=== PATIENT | male | born 1960 | race Caucasian/White ===

== ENCOUNTER 2020-04-21 08:09 | Outpatient (CLI) | payer MEDICARE, SELFPAY ==
--- NOTE | 2020-04-21 08:30 | FL_ITS ---
WS: [id number] ESOPHAGRAM TECHNIQUE: Double contrast examination was performed with thin and thick barium. Upright and DIXON imag es were obtained. CLINICAL INFORMATION: R13.10 - Dysphagia, unspecified FLUOROSCOPY TIME 4.5 MINUTES COMPARISON: None. FINDINGS: Sternotomy. Cardiac pacer. Swallowing: No evidence of aspiration or penetration. Prominent pooling of contrast in the vallecula which partially clears with additional swallows. Prominent bilateral pharyngeal pouches with pooling of contrast. In addition posterior projecting pharyngeal diverticulum at the level of the hyoid bone measuring approximately 1.5 x 1.5 cm with contrast retention. This is at the C3-4 level higher than t ypical for a Zenker's diverticulum Esophagus: Mild to moderate esophageal dysmotility with delayed emptying on the upright view and ter tiary contractions in the distal esophagus. Moderate esophageal hiatal hernia with reflux to the mide sophagus. Gastroesophageal reflux: Present Fluoroscopy time: 4.5 minutes. FL/FL barium swallow [id number] IMPRESSION: 1. Mild to moderate esophageal dysmotility with delayed emptying on the uprigh t and supine imaging. Tertiary contractions in the distal esophagus. 2. Moderate esophageal hiatal hernia with active reflux to the midesophagus. 3. Prominent pooling of contrast in the vallecula and prominent lateral pharyn geal pouches which partially clears with additional swallows. 4. 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 This demonstrates contrast retention and emptying with additional swallowing. 5. Above findings can be further evaluated with endoscopy
== END 2020-04-21 08:10 | disposition home or self-care (01) ==
LOC: RADWPI 08:12
PROVIDERS: PCP Electrodiagnostic Medicine; Visit Provider Internal Medicine Cardiovascular Disease
DX: R13.10 Dysphagia, unspecified (principal); K44.9 Diaphragmatic hernia without obstruction or gangrene
CPT/HCPCS: 74220

== ENCOUNTER 2020-05-02 08:14 | Outpatient (CLI) | payer MEDICARE, SELFPAY ==
--- NOTE | 2020-05-02 08:45 | USCV_ITS ---
Marvin Plasencia Age: 60 Gender: M : 1960 Exam Date: 05/02/2020 08:45 Ordering Phys: Lai Amaro MD ([email or web address]) Technologist: Sarahy Thornton [place] [facility] [place]: cad BP: / HR: Rhythm: Sinus Technical Quality: Adequate MEASUREMENTS (Male / Female) Normal Values 2D ECHO LV Diastolic Diameter PLAX 5.7 cm 4.2 - 5.9 / 3.9 - 5.3 cm LV Systolic Diameter PLAX 3.5 cm IVS Diastolic Thickness 1.2 cm 0.6 - 1.0 / 0.6 - 0.9 cm IVS Systolic Thickness 1.2 cm LVPW Diastolic Thickness 2.4 cm 0.6 - 1.0 / 0.6 - 0.9 cm LVPW Systolic Thickness 3.6 cm LVOT Diameter 1.5 cm LV Ejection Fraction 2D Teich 44.9 % LV Ejection Fraction MOD 2C 56.1 % LV Ejection Fraction 2C AL 55.0 % LA Diameter 3.2 cm LA Width 4.3 cm LA Height 5.9 cm RA Width 2.7 cm RA Height 5.7 cm Aorta at Sinotubular Diameter 3.5 cm M-MODE LV Diastolic Diameter MM 4.6 cm 4.2 - 5.9 / 3.9 - 5.3 cm LV Systolic Diameter MM 4.6 cm LV Ejection Fraction MM Teich 0.2 % IVS Diastolic Thickness MM 0.8 cm 0.6 - 1.0 / 0.6 - 0.9 cm IVS Systolic Thickness MM 1.5 cm LVPW Diastolic Thickness MM 4.5 cm 0.6 - 1.0 / 0.6 - 0.9 cm LVPW Systolic Thickness MM 1.7 cm Aortic Annulus Diameter 3.2 cm LA Ao Ratio MM 1.5 MV E Point Septal Separation 1.5 cm DOPPLER AV Peak Velocity 90.0 cm/s LVOT Peak Velocity 74.0 cm/s AV Area Cont Eq vti 1.4 cm squared AV Area Cont Eq pk 1.5 cm squared MV Peak Velocity 95.0 cm/s MV Area PHT 3.1 cm squared Mitral E to A Ratio 2.4 MV E' Velocity 38.0 cm/s Mitral E to MV E' Ratio 7.7 Mitral E to LV E' Lateral Ratio 7.0 Mitral E to LV E' Septal Ratio 8.8 TR Peak Velocity 212.0 cm/s TR Peak Gradient 18.0 mmHg Right Atrial Pressure 3.0 mmHg Pulmonary Artery Systolic Pressu 21.0 mmHg PV Peak Velocity 73.0 cm/s RV Acceleration Time 0.1 s RV Ejection Time 0.3 s RV AcT/ET 0.3 FINDINGS Left Ventricle Moderately increased left ventricular cavity size. Moderately decreased left ventricular systolic function. Left ventricular ejection fraction is estimated at 45 %. Global left ventricular hypokinesis. Grade III/IV diastolic dysfunction (restrictive filling pattern), severely elevated filling pressures. Right Ventricle Normal right ventricular size. Catheter/pacemaker wire visualized in the right ventricle. Right Atrium Normal right atrial size. Catheter/pacemaker wire in the right atrial cavity. Left Atrium Moderately increased left atrial size. Mitral Valve Structurally normal mitral valve without significant stenosis or prolapse. There is no mitral regurgitation. Aortic Valve Moderate aortic valve calcification. No aortic valve stenosis. Trace aortic valve regurgitation. Tricuspid Valve Trace tricuspid valve regurgitation. Pulmonic Valve Structurally normal pulmonic valve without significant stenosis. There is no pulmonic regurgitation. Pericardium Normal pericardium without effusion. Aorta Normal ascending aorta dimension. CONCLUSIONS 1-Moderately increased left ventricular cavity size. Moderately decreased left ventricular systolic function. Left ventricular ejection fraction is estimated at 45 %. Global left ventricular hypokinesis. Grade III/IV diastolic dysfunction (restrictive filling pattern), severely elevated filling pressures. 2-Moderate aortic valve calcification. No aortic valve stenosis. Trace aortic valve regurgitation. 3-Normal right ventricular size. Catheter/pacemaker wire visualized in the right ventricle. 4-There is no pericardial effusion. 5-Pulmonary artery systolic pressure is within normal limits. 6-Right atrial pressure is around 5 mm of mercury. 7-When compared to the prior echocardiogram dated 05/2016 there is deterioration in left ventricular function from mildly reduced 50% to moderately reduced 45%. Lai Amaro MD (Electronically Signed) Final Date: 02 May 2020 16:30 S
--- NOTE | 2020-05-02 09:30 | USCV_ITS ---
Marvin Plasencia Age: 60 Gender: M : 1960 Exam Date: 05/02/2020 08:41 Ordering Phys: Lai Amaro MD ([email or web address]) Technologist: Gabriela Barba [place] [facility] [place]: CAD Risk Factors: Previous Vascular Surgery: Right Brachial BP: / Left Brachial BP: / Right Left Velocity (cm/s) Spectral Plaque Velocity (cm/s) Spectral Plaque Syst/Diast Broadening Syst/Diast Broadening 70.90/ 17.90 Prox CCA 79.70 / 20.60 68.40/ 21.40 Mid CCA 88.20 / 26.30 72.60/ 21.80 Distal CCA 84.80 / 22.70 68.00/ 18.20 Prox ICA 68.10 / 16.00 50.50/ 22.60 Mid ICA 75.00 / 25.70 52.80/ 24.10 Distal ICA 43.80 / 20.80 72.60 ECA 81.80 0.94 ICA/CCA 0.85 Antegrade Vertebral Antegrade 29.40/ 11.50 cm/s 32.00/ 9.00 cm/s Tri Subclavian Tri 38.40 112.8 0 FINDINGS Minimal plaques of the bifurcations bilaterally. Intimal thickening in the common carotid arteries bilaterally. Antegrade flow in the vertebral arteries bilaterally. Normal Doppler flow velocities in the external carotid arteries bilaterally CONCLUSIONS Minimal plaques of the bifurcations bilaterally. Intimal thickening in the common carotid arteries bilaterally. No significant stenosis, based on the above 5 Dr Donna Bond MD [facility] (Electronically Signed) Final Date: 08 May 2020 08:51 S
== END 2020-05-02 08:15 | disposition home or self-care (01) ==
PROVIDERS: PCP Electrodiagnostic Medicine; Visit Provider Internal Medicine Cardiovascular Disease
DX: R55 Syncope and collapse (principal); R06.02 Shortness of breath; R07.9 Chest pain, unspecified; I25.10 Atherosclerotic heart disease of native coronary artery without angina pectoris; I35.8 Other nonrheumatic aortic valve disorders
CPT/HCPCS: 93306; 93880

== ENCOUNTER → 2021-08-23 17:22 | Outpatient (BNVA) | payer MEDICARE, SELFPAY | PROVIDERS: PCP Electrodiagnostic Medicine; Visit Provider Internal Medicine | DX: Z45.010 Encounter for checking and testing of cardiac pacemaker pulse generator [battery] (principal) ==

== ENCOUNTER 2021-11-23 08:59 | Outpatient (CLI) | payer MEDICARE, SELFPAY ==
--- NOTE | 2021-11-23 09:30 | USCV_ITS ---
Luis AngelMarvin cool Age: 61 Gender: M : 1960 Exam Date: 11/23/2021 09:23 Ordering Phys: Mark Borja M.D ([email or web address]) Technologist: Art Campos [place] [facility] [place]ication: HISTORY: Lower extremity swelling. hx dvt hx great saph harvested on rt PROCEDURES: Bilateral duplex Venous Insufficiency study of the Deep and Superficial systems was carried out according to normal protocol with the patient in supine positon for deep system and dependent position for the superficial system. FINDINGS: All deep veins demonstrated compressibility without evidence of intraluminal thrombus or increased echogenicity. Reflux determinations were made with the patient in the dependent position, the weight being on the contralateral leg. CONCLUSIONS 1. Significant deep venous reflux of greater than 1000 ms was noted at the right popliteal, left femoral and left popliteal veins. 2. The right greater saphenous vein was found to be absent. Significant reflux of greater than 500 ms was noted at the saphenofemoral junction on the right side. No significant venous reflux was noted in the small saphenous vein at 1. Doing better and for on the right side. 3. On the left side, significant venous reflux of greater than 500 ms were noted at the distal greater saphenous vein segment, proximal and mid small saphenous venous segments. The small saphenous vein segments were found to be superficial, less than 1 cm deep from the surface. The greater saphenous vein segment was found to be of 0.4 cm in diameter, at a depth of 1.22 centimeter from the surface. 4. No evidence of deep vein thrombosis in the above-mentioned identifiable veins. Dr Donna Bond MD [facility] (Electronically Signed) Final Date: 03 December 2021 09:46 S
== END 2021-11-23 09:00 | disposition home or self-care (01) ==
PROVIDERS: PCP Electrodiagnostic Medicine; Visit Provider Internal Medicine
DX: I87.2 Venous insufficiency (chronic) (peripheral) (principal); M79.89 Other specified soft tissue disorders
CPT/HCPCS: 93970

== ENCOUNTER 2022-01-21 08:34 | Outpatient (CLI) | payer MEDICARE, SELFPAY ==
--- NOTE | 2022-01-21 | ECG_ITS ---
[facility] Test Date: 2022-01-21 Pat Name: Marvin Plasencia Department: Room: Gender: Male Cardroom Drawing Runner: Fabiola Garces : 1960 Requested By: Mark Borja Order Number: [id number] Bianca MD: Donna Bond M.D. Interpretive Statements NAME OF STUDY: LEXISCAN SESTAMIBI STRESS TEST INDICATION: Chest Pain, PROCEDURE: At the baseline, the EKG revealed atrial fibrillation with a demand V paced rhythm. Diffuse nonspecific T wave changes. The baseline heart was 65 bpm with a blood pressue of 119/92 mm of Hg Lexiscan was infused over a period of 20 seconds. A total of 0.4 milligrams of Lexiscan was infused. The stress phase was continued for a total of 5 minutes. Heart rate at the end of the stress phase was 60 bpm with a blood pressure 107/74 mm of Hg. The EKG at the peak infusion revealed no significant changes. Sestamibi was injected 20 seconds after the Lexiscan infusion. Heart rate at the end of the recovery phase was 60 bpm with a blood pressure of 100/73 mm of Hg. CONCLUSION: 1. No significant EKG changes with the LexiScan infusion 2. No LexiScan induced chest pain or cardiac arrhythmia 3. Normal blood pressure and heart rate response 4. Sestamibi/sestamibi perfusion scan pending; see separate report. Electronically Signed On 01-25-2022 8:52:10 STATIONARY ENGINEER by Donna Bond M.D. [email or web address]
[2022-01-21 09:04] VITALS: BMI 34.3
--- NOTE | 2022-01-21 09:50 | NMCV_ITS ---
NM tigist perf SPECT r/s* [id number] Marvin Plasencia Age: 61 Gender: M : 1960 Exam Date: 01/21/2022 10:48 Ordering Phys: Mark Borja M.D ([email or web address]) Technologist: TIFFANIE Campo Exam Location: [facility] Indications: SHORTNESS OF BREATH STRESS TEST [facility] IMAGE PROTOCOL Rest/Stress 1 Lexiscan Day Radiopharmaceutical Dose (mCi) Administration Site Administered by Rest: Tc-99m 10.2 IV TIFFANIE Campo Sestamibi Stress:Tc-99m 32.6 IV TIFFANIE Limon Sestamibi Rest: 21-Jan-2022 60 Discovery 630 Stress: 21-Jan-2022 30 Discovery 630 0.4mg Lexiscan. Images obtained in supine and prone position. SPECT RESULTS Technical Quality: Excellent Raw Data Analysis: Normal Image Corrections: No attenuation or motion correction applied Summed Stress Score: 23 Summed Rest Score: 21 Summed Difference Score: 4 PERFUSION FINDINGS Large sized perfusion abnormality of moderate to severe severity of basal to apical inferior, basal to apical inferolateral, mid anterolateral, apical anterior and apical wall on rest images with mild reversibility in basal to mid anterolateral and mid inferolateral thakkar on stress images. FUNCTIONAL RESULTS (calculated via Gated SPECT) Stress Image LV EF (%): 55 Stress EDV (mL):181 TID: 1.18 Stress ESV (mL):82 FUNCTIONAL FINDINGS: The left ventricle is normal in size. Transient Ischemia Dilatation of 1.2. The left ventricular ejection fraction is normal with a value of 55%. Mild hypokinesis of inferior wall. IMPRESSIONS 1. Large sized perfusion abnormality of moderate to severe severity of basal to apical inferior, basal to apical inferolateral, mid anterolateral, apical anterior and apical thakkar with mild reversibility in basal to mid anterolateral and mid inferolateral thakkar. 2. 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 3. The left ventricular ejection fraction is normal with a value of 55%. 4. Mild hypokinesis of inferior wall. 5. EKG portion of the study will be reported separately. Jenny Washburn MD (Electronically Signed) Final Date: 25 January 2022 10:34 S
[2022-01-21] MEDS: regadenoson 0.4 Mg/5 ml Syringe IVP (11:19)
[2022-01-21 11:58] VITALS: BP 100/73; PULSE 60
== END 2022-01-21 08:35 | disposition home or self-care (01) ==
LOC: CDL 08:35
PROVIDERS: PCP Electrodiagnostic Medicine; Visit Provider Internal Medicine
DX: R07.9 Chest pain, unspecified (principal); R06.02 Shortness of breath
CPT/HCPCS: 78452; 93017; A9500; J2785

== ENCOUNTER 2022-02-22 08:15 | Outpatient (CLI) | payer MEDICARE, SELFPAY ==
[2022-02-22 09:04] LABS: Basophils # 0.1 10^3/uL (0.0-0.1); Basophils % 1.2 %; Eosinophils # 0.3 10^3/uL (0.0-0.8); Eosinophils % 5.4 %; Hematocrit 49.6 % (42.0-52.0); Hemoglobin 16.7 g/dL (11.7-16.6); Lymphocytes # 2.1 10^3/uL (0.8-4.8); Lymphocytes % 36.7 %; Mean Corpuscular HGB Conc 33.7 g/dL (30.0-36.0); Mean Corpuscular Hemoglobin 33.1 pg (28.0-34.0); Mean Corpuscular Volume 98.2 fl (80-94); Mean Platelet Volume 10.9 fL (7.4-10.4); Monocytes # 0.6 10^3/uL (0.2-0.9); Monocytes % 10.8 %; Neutrophils # 2.61 10^3/uL (1.8-7.7); Neutrophils % 45.7 %; Nucleated Red Blood Cells % 0 %; Platelet Count 205 10^3/cmm (130-400); Red Blood Count 5.05 10^6/uL (4.1-5.3); Red Cell Distribution Width 12.9 % (12.1-15.1); White Blood Count 5.7 10^3/uL (4.0-10.0)
[2022-02-22 09:17] LABS: Prothrombin Time (Patient) 14.5 Seconds (12.0-15.1)
[2022-02-22 09:23] LABS: Anion Gap 12.3 (5-19); Blood Urea Nitrogen 22 mg/dL (8-23); Calcium 9.5 mg/dL (8.5-10.5); Carbon Dioxide 28 mmol/L (22-29); Chloride 102 mmol/L (98-107); Glomerular Filtration Rate 67.8 mL/min (90-130); Glucose 99 mg/dL (65-115); Osmolality Calculated 289 mOsm/kg (285-295); Potassium 4.3 mmol/L (3.5-5.1); Sodium 138 mmol/L (136-145)
== END 2022-02-22 08:16 | disposition home or self-care (01) ==
LOC: LAB 08:18
PROVIDERS: PCP Electrodiagnostic Medicine; Visit Provider Internal Medicine
DX: I48.91 Unspecified atrial fibrillation (principal); R58 Hemorrhage, not elsewhere classified; I10 Essential (primary) hypertension
CPT/HCPCS: 80048; 85025; 85610

== ENCOUNTER 2022-02-27 08:44 | Outpatient (CLI) | payer MEDICARE, SELFPAY ==
--- NOTE | 2022-02-27 09:30 | USCV_ITS ---
Marvin Plasencia Age: 61 Gender: M : 1960 Exam Date: 02/27/2022 08:58 Ordering Phys: Mark Borja M.D ([email or web address]) Technologist: Sarahy Thornton Exam Location: [facility] [place] Indication: CAD/SOB BP: 130 / 82 HR: 69 Rhythm: Sinus Technical Quality: MEASUREMENTS (Male / Female) Normal Values 2D ECHO LV Diastolic Diameter PLAX 5.3 cm 4.2 - 5.9 / 3.9 - 5.3 cm LV Systolic Diameter PLAX 4.3 cm IVS Diastolic Thickness 1.6 cm 0.6 - 1.0 / 0.6 - 0.9 cm IVS Systolic Thickness 1.6 cm LVPW Diastolic Thickness 1.8 cm 0.6 - 1.0 / 0.6 - 0.9 cm LVPW Systolic Thickness 2.4 cm LVOT Diameter 2.0 cm LV Ejection Fraction 2D Teich 41.6 % LV Ejection Fraction MOD 2C -5.6 % LV Ejection Fraction 2C AL -5.3 % LA Diameter 4.3 cm LA Width 4.5 cm LA Height 5.8 cm RA Width 4.4 cm RA Height 5.5 cm Aorta at Sinotubular Diameter 3.8 cm IVC Diameter 2.4 cm DOPPLER AV Peak Velocity 92.0 cm/s LVOT Peak Velocity 91.0 cm/s AV Area Cont Eq vti 3.3 cm squared AV Area Cont Eq pk 3.1 cm squared MV Peak Velocity 97.0 cm/s MV Area PHT 5.0 cm squared Mitral E to A Ratio 3.0 MV E' Velocity 51.5 cm/s Mitral E to MV E' Ratio 7.5 Mitral E to LV E' Lateral Ratio 6.8 Mitral E to LV E' Septal Ratio 8.6 TR Peak Velocity 193.5 cm/s TR Peak Gradient 15.0 mmHg Right Atrial Pressure 3.0 mmHg Pulmonary Artery Systolic Pressu 18.0 mmHg PV Peak Velocity 79.3 cm/s RV Acceleration Time 0.1 s RV Ejection Time 0.3 s RV AcT/ET 0.4 FINDINGS Left Ventricle Technically limited quality echocardiogram because of poor ultrasonic windows. Left ventricle is normal size. Grossly LV systolic function is mildly reduced. Regional wall motion abnormalities cannot be accurately assessed because of poor ultrasonic windows. Right Ventricle Grossly normal Right Atrium Normal in size Left Atrium Normal-sized Mitral Valve Grossly normal. Mild mitral regurgitation. Aortic Valve Structurally normal aortic valve. No significant stenosis. Mild aortic regurgitation. Tricuspid Valve Trace tricuspid regurgitation. Pulmonary artery systolic pressure is normal. Pulmonic Valve Not well visualized Pericardium Grossly normal Aorta Mildly dilated ascending aorta. IVC Not well visualized CONCLUSIONS Technically limited quality echocardiogram because of poor ultrasonic windows. Grossly LV systolic function is mildly reduced. Regional wall motion abnormalities cannot be assessed because of poor ultrasonic windows. Mild mitral regurgitation Mild aortic regurgitation Trace tricuspid regurgitation Mildly dilated ascending aorta. Compared to prior echocardiogram from 2020, no significant changes are seen Mark Borja MD (Electronically Signed) Final Date: 10 March 2022 12:38 S
== END 2022-02-27 08:45 | disposition home or self-care (01) ==
LOC: RAD 08:45
PROVIDERS: PCP Electrodiagnostic Medicine; Visit Provider Internal Medicine
DX: R06.02 Shortness of breath (principal); I25.10 Atherosclerotic heart disease of native coronary artery without angina pectoris; I08.3 Combined rheumatic disorders of mitral, aortic and tricuspid valves
CPT/HCPCS: 93306

== ENCOUNTER 2022-03-01 19:00 | Observation (INO) | payer MEDICARE, SELFPAY ==
[2022-03-01] VITALS (99 sets, daily range): BP systolic 108–136; BP diastolic 69–92; PULSE 56–84; RESP 2–27; TEMP 36.3–36.6; O2SAT 87–100; BMI 33.2
--- NOTE | 2022-03-01 06:00 | XACV_ITS ---
Exam Room: 2 Ht: 191 cm Wt: 121 kg BSA: 2.56 m2 Gender: Male : 1960 Any Known Allergies: Other Exam Priority: Routine Procedure(s): Procedure Description: Diagnostic procedure Procedure Description: PCI procedure Procedure Description: Drug Eluting Coronary Stent Procedure Description: PTCA Procedure Description: Miscellaneous Procedure Description: ACT Procedure Description: Coronary Angiography Diagnostic Cath Status: Elective Diagnostic Findings * INDICATION: 61-year-old man with past medical history of coronary artery disease s/p CABG in 2017, congestive heart failure, atrial fibrillation on Xarelto has been having on and off chest pressure episodes along with dyspnea on exertion. He underwent stress test that showed prior infarct with tamara-infarct ischemia in inferolateral and anterolateral thakkar. However his chest pain symptoms are typical and have worsened recently. Plan for coronary angiogram with possible percutaneous coronary intervention. * Left Main has mild luminal irregularities.. * Left Anterior Descending has mild to moderate diffuse luminal irregularities. Prior stent is patent with 20-30% in-stent restenosis.. * Proximal Right Coronary Artery: obstructive 70-75% stenosis, IRMA: 3 flow. * Proximal Circumflex stent: total occlusion, IRMA: 0 flow. * Bypass grafts: SVG to OM1: Patent SVG to OM2: Patent DAMON to LAD: Atretic vessel. However [place] LAD is patent.. * Coronary angiography shows co-dominance. PCI Status: Elective PCI Indication: Other Interventional Findings * Procedure detail: We engaged RCA with a JR4 guide catheter. IV heparin was administered to maintain ACT above 250 S. 0.014 run-through guidewire was used to cross the proximal RCA stenosis. We predilated the stenosis with 2.5 x 12 mm semicompliant balloon. This was followed with placement of 2.5 x 15 mm resolute Neola drug-eluting stent. At this time final angiogram was performed that showed excellent stent expansion, no residual stenosis and IRMA-3 flow. Guidewire and guide catheter were removed. Right femoral artery sheath was removed and Angio-Seal was used to close the access site. * Proximal Right Coronary Artery: 70% stenosis treated with a AB TREK 2.50X12 RX BALLOON, and MDT R TESS 2.5X15 KEATON. 0% residual stenosis, IRMA: 3 flow. Conclusions 1. Severe proximal RCA stenosis s/p successful revascularization with KEATON x1.. 2. Patent SVG to OM1 and patent SVG to OM 2. DAMON to LAD is atretic. However [place] LAD is patent with patent stent. 3. Patient has prior CABG. Recommendations * Transferred to CSU. * Patient will be loaded with Plavix. At time of discharge he will be sent home on Plavix and Xarelto. We will hold aspirin at discharge. * Outpatient cardiology follow-up in 4 weeks. * Aggressive risk factor modification. Interventional RX Recommendation: PCI w/o planned CABG Diagnostic RX Recommendation: PCI w/o planned CABG Anticoagulation: Heparin Pressures Phase:Rest AO : 99 / 74 ( 87 ) @ 7:41:00 AM 99 / 73 ( 86 ) @ 7:47:00 AM 111 / 72 ( 88 ) @ 7:57:00 AM Clinical Evaluation EBL: 5mL-10mL Procedural Details Procedure Consent Obtained. Pre-Procedure Time Out. Identified patient by full name and date of as verbalized by the patient/guarantor. Does the consent match the physician's order: Yes. Accurate & Complete Informed Consent: Yes. Inpatient/Outpatient History & Physical on Chart: Yes. If H&P is completed, is and addenduem needed: Yes; If yes, is the addendum complete: Yes. Visualize and Verify Site with Patient/Guarantor: N/A. Relevant Radiology Images available: Yes. The risks, benefits, and alternatives of sedation and/or procedure were discussed by physician. The patient agrees to continue. Procedure started. [facility] Clinical Fraility Score: 3: Managing Well. Tip Stitcher Indications: New Onset Angina. Chest Pain Symptom Assessment: Typical Angina Symptoms. Cardiovascular Instability: No. Correct patient, site and procedure confirmed by cath team. PERRLA. Strong, equal hand certified adapted physical educator bilaterally. Lungs clear x 5 lobes. IV Site on Arrival: 20 gauge in the right forearm. IV Fluids: 0.9% NaCl at KVO. 0 mL infused prior to collaborative physician. Pre Procedural Pulses: bilateral dorsalis pedis was Doppled. Pre Procedural Pulses: bilateral posterior tibial was Doppled. Pre Procedural Pulses: bilateral radial was 3+. Oxygen started at 2liters/min via nasal canula. bilateral groins was prepped with chloroprep then draped in the usual sterile fashion. Baseline sample Acquired. HR: 61 BPM. Physician notified. Patient's family unavailable. Equipment: 6F - Femoral. Cardiac Cath Pack. ACIST Manifold Kit Model BT 2000. Heparinized Saline (2 units/mL), 1000 mL bag. Kit, Micropuncture. Physician arrived. Physician scrubbed in. Immediate Pre-Procedure Time Out. Correct Patient: Yes; Correct Procedure: Yes; Correct Site: Yes; Correct Patient Position: Yes; Correct Supplies: Yes; Dried Flammable Prep: Yes; Blood Products Available: N/A;. Lidocaine 1% infiltrated to the right groin. Arterial access obtained with micropuncture set. Unable to advance wire, wire and needle out. Manual pressure being held by Dr. Borja. Arterial access obtained with micropuncture set. add inventory: 0.035 Terumo Radial glidesheath. A 5 croatian JL4 catheter in over the standard J wire. Multiple views taken of left coronary artery. Catheter removed over the standard J wire. A 5 croatian JL4 catheter in over the standard J wire. Multiple views taken of right coronary artery. Catheter redirected to the SVG-->OM 2 and cineography performed. Catheter redirected to the SVG skip graft-->OM 1 and AV groove and cineography performed. Catheter redirected to the DAMON-->LAD and cineography performed. Catheter removed over the standard J wire. 6 croatian JR 4 guide catheter was inserted over the standard J wire. Add inventory: Co-Technology Assistant, JR 4 guide, Runthrough wire, Endoflator. Runthrough guidewire was advanced through the guide catheter to lesion in the prox RCA. Inflation number : 1 A AB TREK 2.50X12 RX BALLOON was prepped and advanced across the Prox RCA , then inflated to 14 EDGAR for 0:14 seconds. Inflation number: 2 The AB TREK 2.50X12 RX BALLOON was reinflated across the Prox RCA, to 12 EDGAR for 0:12 seconds. Balloon out. Inflation Number : 3 A ALICIA Beth TESS 2.5X15 KEATON -Lot Number# [id number] was prepped and advanced across the Prox RCA. The stent was deployed at 12 EDGAR for 0:24 seconds. Exp 2023-08-04. Stent balloon out over wire. Results checked. Wire out. Guide catheter out. A Right femoral angiogram was performed to determine safe placement of closure device. Lidocaine 1% infiltrated to the right groin. ACT drawn. Results 210 seconds. Therapeutic limits - pre-heparin administration 90-150 seconds and monitoring heparin during a vascular procedure >250 seconds. Angioseal placed without complications. No signs or symptoms of hematoma noted. Sterile dressing applied per usual sterile fashion. Lot # [id number]. Exp. . A Angio-Seal VIP (St. Shad) was successful obtaining hemostatsis at the Right Femoral artery insertion site. Post Procedure: Pulses reassessed and unchanged. PERRLA. Strong, equal hand certified adapted physical educator bilaterally. No VTE prophylaxis required. Medication's Wasted: Nitro = 50 mg. Medication's Wasted: Heparin = 3000 units. Medication's Wasted: Other = Versed 1 mg. Medication's Wasted: Other = Fentanyl 25 mcg. Total IV fluids: 163 mL. Post-op diagnosis: PCI of the Prox RCA. PCI Indication: New Onset Angina. Complications: none. Estimated blood loss: 5mL-10mL. Responsiveness - Normal response to verbal stimuli; alert and oriented, PERRLA. Airway - Unaffected, no intervention required; spontaneous ventilation. Circulation: W/N/L, pulses unchanged. Nausea/Vomiting: No. Procedure completed. Patient transferred by bed to 1st floor. Vital chart was stopped. Access Site Site: Right Femoral artery Sheath Size: 6 Fr Hemostasis Method: Angio-Seal VIP (St. Shad) Hemostasis Success: Successful Procedure Medications Start: 7:26 AM Stop: 7:26 AM Medication: Versed Amount: 1 mg Route: I.V. Start: 7:26 AM Stop: 7:26 AM Medication: Fentanyl Amount: 25 mcg Route: I.V. Start: 7:28 AM Stop: 7:28 AM Medication: Versed Amount: 1 mg Route: I.V. Start: 7:30 AM Stop: 7:30 AM Medication: Fentanyl Amount: 25 mcg Route: I.V. Start: 7:56 AM Stop: 7:56 AM Medication: Heparin Amount: 88063 units Route: I.V. Start: 8:04 AM Stop: 8:04 AM Medication: Versed Amount: 1 mg Route: I.V. Start: 8:10 AM Stop: 8:10 AM Medication: Fentanyl Amount: 25 mcg Route: I.V. Start: 8:10 AM Stop: 8:10 AM Medication: Heparin Amount: 2000 units Route: I.V. Start: 8:16 AM Stop: 8:16 AM Medication: Plavix Amount: 600 mg Route: P.O. I, the attending physician, have reviewed and verified all procedure medications. Yes, all medications given per verbal order History/Risk Factors Hypertension: Yes Dyslipidemia: Yes Peripheral Arterial Disease (PAD): No Myocardial Infarction (AR): Yes Obesity: No Renal Disease: No Tobacco Use: Current/Recent(w/in 1 year) Prior Interventions PCI: Yes CABG: Yes Valve Surgery: No Date of PCI: 03/29/2015 Report Signatures Finalized by Mark Borja MD on 03/01/2022 02:14 PM
[2022-03-01] MEDS: diphenhydrAMINE 50 mg Capsule PO (06:15)
--- NOTE | 2022-03-01 07:21 | P.HP_ITS ---
Same Day Surgery H&P Indication for Procedure/HPI DATE OF PROCEDURE: March 01, 2022 CHIEF COMPLAINT/INDICATIONFOR SURGICAL PROCEDURE: Chest pain/abnormal stress test PREOP DIAGNOSIS: Chest pain/ abnormal stress test PLANNED PROCEDURE: Operation Date: 03/01/22 07:00 Proposed Procedures p Left Cardiac Catheterization 15496, R94.39,R07.9(Left) - Mark Borja M.D Possible percutaneous coronary intervention 61-year-old man with past medical history of coronary artery disease s/p CABG in 2017, congestive heart failure, atrial fibrillation on Xarelto has been having on and off chest pressure episodes along with dyspnea on exertion. He underwent stress test that showed prior infarct with tamara-infarct ischemia in i nferolateral and anterolateral thakkar. However his chest pain symptoms are typical and have worsened recently. Plan for coronary angiogram with possible percutaneous coronary intervention. ROS CONSTITUTIONAL: No fever chills weight loss or gain or night sweats. [] HEENT: Normocephalic, atraumatic.[] RESPIRATORY: Has dyspnea on exertion CARDIOVASCULAR: Chest pain and dyspnea on exertion GI: no nausea vomiting diarrhea. [] SPECIAL TRACKWORK BLACKSMITH: No numbness, tingling, weakness or loss of function in any part of the body. [] MUSCULOSKELETAL: No knee or joint pain or rashes. [] Medications/Allergies* Home Medications Medication Instructions Recorded Confirmed Type multivitamin 1 tab PO DAILY 10/28/19 03/01/22 History guaifenesin 600 mg tablet, 600 mg PO Q12H PRN Congestion 04/14/20 03/01/22 History extended release 12 hr (Mucinex) apple cider vinegar 500 mg tablet mg PO 09/25/20 10/05/21 History ascorbic acid (vitamin C) 500 mg 500 mg PO DAILY 04/02/21 03/01/22 History tablet ibuprofen 200 mg tablet 200 mg PO Q6H PRN Pain 04/02/21 03/01/22 History Allergies/Adverse Reactions Allergy/AdvReac Type Severity Reaction Status Date / Time No Known Allergies Allergy Verified 03/01/22 06:43 Current Medications: Generic Name Dose Route Start Last Admin Trade Name Freq PRN Reason Stop Dose Admin Sodium Chloride 1,000 mls @ 50 mls/hr 03/01/22 06:00 03/01/22 06:27 Sodium Chloride 0.9% IV 03/02/22 01:59 Not Given .Q20H ONE Pertinent History/Comorbid Conditions* Medical History (Updated 10/09/21 @ 12:40 by Mark Borja M.D) History of atrial fibrillation History of hypertension Hx of arteriosclerotic cardiovascular disease Hx of cardiac pacemaker Hx of coronary artery disease Hx of deep venous thrombosis Hx of pulmonary embolus Surgical History (Updated 09/29/20 @ 21:27 by Lai Amaro MD) Hx of CABG Social History Smoking and tobacco status: current every day smoker cigarettes Packs smoked per day: 1 Years cigarettes smoked: 30 Pertinent Exam Findings alert, oriented x 3, clear to auscultation bilaterally and regular rate & rhythm Conscious Sedation Assessment PATIENT ASSESSED PRIOR TO SEDATION, WITH NO CHANGE NOTED: Yes AIRWAY EVAL/ANESTHESIA PLAN: normal airway, see other exam findings, ASA III, Monitored Anesthesia, Local Anesthesia and Risks, benefits & alternatives of sedation and/or procedure discussed Recommendations Surgery/Procedure today (Left heart cath with possible percutaneous coronary intervention) Coding Level of Care Code Acute Jewel Hole Rough Opener for Yusra Miller
[2022-03-01] MEDS: ondansetron 2 mg/ML SDV 2 mL 4 MG IVP (09:42)
--- NOTE | 2022-03-01 10:00 | ECG_ITS ---
[facility] Test Date: 2022-03-01 Pat Name: Marvin Plasencia Department: Room: 102 Gender: Male Internal Medicine Physician: : 1960 Requested By: Mark Borja Order Number: [id number] Bianca MD: Mark Borja M.D. Measurements Intervals [place] Rate: 61 P: 0 TN: 0 QRS: -68 QRSD: 210 T: 125 QT: 508 QTc: 513 Interpretive Statements ELECTRONIC VENTRICULAR PACEMAKER ABNORMAL RHYTHM ECG Compared to ECG 12/09/2016 17:15:51 Atrial fibrillation no longer present Left anterior fascicular block no longer present Myocardial infarct finding no longer present Electronically Signed On 03-01-2022 15:17:29 LONG WALL MINING MACHINE TENDER by Mark Borja M.D. [id number] [email or web address]
--- NOTE | 2022-03-01 11:55 | PC.CHAP ---
Pastoral Care Encounter/Spiritual Assessment Type of Contact [] Declined title supervisor visit [] Patient/Family/Request visit [] Outpatient visit [] Follow-up visit [] Physician referral [] Code/Alert [x] Routine visit [] Staff referral [] Actively dying [] Patient sleeping [] Family support [] [] Out of room [] Palliative care [] [] Receiving care in room [] Pre-surgical visit [] Trauma [] Long length of stay [] ICU visit [] Other: Relational/Emotional Strength [x] Patient feels connected with others/family/visitors/staff [] Distress [] Loneliness/isolation [] Abandonment Spirituality of Patient [x] Person of Park [] Attends Jain of their Park [x] Believes in Prayer [] Reads Bible or Sabianist materials [] There are Spiritual issues to be addressed Swimming Pool Service Technician Interventions [x] Prayer x [] Active listening [] Non-anxious presence []x Spiritual/emotional support [] Crisis/trauma care [] Spiritual counseling [] Bereavement support [] Provided bereavement packet [] Provided Bible/devotional materials [] Provided toy/stuffed animal, coloring book to patient or family member [] Provided Communion [] Anointing/[place] [] Salvation [x] Completed spiritual assessment [] Other: Impact on Illness or Injury [] Angry [] Fearful [] Anxious [] Often cries [] Exhaustion [] Unable to work [] Unable to attend anabaptism [] Unable to walk/stand [] Unable to read [] Unable to drive [] Unable to eat/drink [] Unable to sleep [] Unable to be with family [] Patient intubated [] Other: Summary Time spent with patient 10 min
[2022-03-01] MEDS: famotidine 20 mg Tablet PO (18:03)
[2022-03-02 04:00] VITALS: BP 98/68; PULSE 62; RESP 16; TEMP 36.6; O2SAT 94
[2022-03-02 04:44] LABS: Basophils # 0.1 10^3/uL (0.0-0.1); Basophils % 1.6 %; Eosinophils # 0.4 10^3/uL (0.0-0.8); Eosinophils % 5.7 %; Hematocrit 46.9 % (42.0-52.0); Hemoglobin 15.5 g/dL (11.7-16.6); Lymphocytes # 1.8 10^3/uL (0.8-4.8); Lymphocytes % 29.8 %; Mean Corpuscular Hemoglobin 32.9 pg (28.0-34.0); Mean Corpuscular Volume 99.6 fl (80-94); Mean Platelet Volume 11.1 fL (7.4-10.4); Monocytes # 0.7 10^3/uL (0.2-0.9); Monocytes % 11.6 %; Neutrophils # 3.12 10^3/uL (1.8-7.7); Neutrophils % 51.1 %; Nucleated Red Blood Cells % 0 %; Platelet Count 199 10^3/cmm (130-400); Red Blood Count 4.71 10^6/uL (4.1-5.3); White Blood Count 6.1 10^3/uL (4.0-10.0)
[2022-03-02 04:59] VITALS: PULSE 60
[2022-03-02 05:19] LABS: Blood Urea Nitrogen 19 mg/dL (8-23); Carbon Dioxide 23 mmol/L (22-29); Glomerular Filtration Rate 67.8 mL/min (90-130); Glucose 97 mg/dL (65-115)
[2022-03-02 05:20] LABS: Potassium 4.6 mmol/L (3.5-5.1)
[2022-03-02 07:08] VITALS: PULSE 61; RESP 15; O2SAT 96
[2022-03-02 07:12] VITALS: BP 107/65; TEMP 36.4
[2022-03-02] MEDS: isosorbide mononitrate ER 30 mg Tablet PO (08:58)
[2022-03-02] MEDS: metoprolol succinate ER (24 HR) 25 mg Tablet PO (08:58)
[2022-03-02] MEDS: famotidine 20 mg Tablet PO (08:58)
[2022-03-02] MEDS: aspirin 81 mg EC Tablet PO (08:58)
[2022-03-02] MEDS: clopidogrel 75 mg Tablet PO (08:58)
[2022-03-02] MEDS: ascorbic acid 500 mg Tablet PO (09:01)
[2022-03-02 11:01] LABS: Anion Gap 14.6 (5-19); Chloride 102 mmol/L (98-107); Osmolality Calculated 282 mOsm/kg (285-295); Sodium 135 mmol/L (136-145)
[2022-03-02 11:08] VITALS: BP 96/65; PULSE 6; RESP 16; O2SAT 93
--- NOTE | 2022-03-02 12:41 | PM.DCS ---
Discharge Providers Date of Admission: 03/01/2022 Date of Discharge: March 02, 2022 Attending Provider at Admission: Jonh Attending Provider at Discharge: Lela Primary Care Provider: Ghanshyam Elam DO Reason for Visit Reason for Visit: R94.39 Brief History: CP/USA, Abnormal Stress Hospital Course Hospital Course PCI RCA 03/01/2022, uneventful Physical Exam Const: COMMON NORMALS: no acute distress Eye: OTHER: PERRL Neck/C-Spine: COMMON NORMALS: no JVD Lymph: OTHER: NO Lymphadenopathy Chest: OTHER: CTAA Cardio: COMMON NORMALS: no JVD, regular rate and regular rhythm RATE: regular rate RHYTHM: regular rhythm GI: COMMON NORMALS: Normal to inspection, nondistended, normoactive bowel sounds present Extremity: COMMON NORMALS: normal to inspection and full ROM NARRATIVE EXTREMITY EXAM: RCFA access with good hemostasis with no compliction/compromise Discharge Data Studies Completed and Pending Completed Studies During Hospitalization Category Date Time Status CARDIOLOGY PHYSICIAN ASSISTANT request for service Routine Exams 03/01/22 06:00 Completed Laboratory Results WBC 6.1 10^3/uL (4.0-10.0) 03/02/22 04:05 RBC 4.71 10^6/uL (4.1-5.3) 03/02/22 04:05 Hgb 15.5 g/dL (11.7-16.6) 03/02/22 04:05 Hct 46.9 % (42.0-52.0) 03/02/22 04:05 MCV 99.6 fl (80-94) H 03/02/22 04:05 MCH 32.9 pg (28.0-34.0) 03/02/22 04:05 MCHC 33.0 g/dL (30.0-36.0) 03/02/22 04:05 RDW 13.0 % (12.1-15.1) 03/02/22 04:05 Plt Count 199 10^3/cmm (130-400) 03/02/22 04:05 MPV 11.1 fL (7.4-10.4) H 03/02/22 04:05 Neut % (Auto) 51.1 % 03/02/22 04:05 Lymph % (Auto) 29.8 % 03/02/22 04:05 [place] % (Auto) 11.6 % 03/02/22 04:05 Eos % (Auto) 5.7 % 03/02/22 04:05 Baso % (Auto) 1.6 % 03/02/22 04:05 Neut # (Auto) 3.12 10^3/uL (1.8-7.7) 03/02/22 04:05 Lymph # (Auto) 1.8 10^3/uL (0.8-4.8) 03/02/22 04:05 [place] # (Auto) 0.7 10^3/uL (0.2-0.9) 03/02/22 04:05 Eos # (Auto) 0.4 10^3/uL (0.0-0.8) 03/02/22 04:05 Baso # (Auto) 0.1 10^3/uL (0.0-0.1) 03/02/22 04:05 Nucleated RBC % (auto) 0 % 03/02/22 04:05 Nucleated RBCs # 0.0 /100WBC 03/02/22 04:05 Sodium 135 mmol/L (136-145) L 03/02/22 04:05 Potassium 4.6 mmol/L (3.5-5.1) 03/02/22 04:05 Chloride 102 mmol/L (98-107) 03/02/22 04:05 Carbon Dioxide 23 mmol/L (22-29) 03/02/22 04:05 Anion Gap 14.6 (5-19) 03/02/22 04:05 BUN 19 mg/dL (8-23) 03/02/22 04:05 Creatinine 1.1 mg/dL (0.7-1.2) 03/02/22 04:05 GFR Calculation 67.8 mL/min (90-130) L 03/02/22 04:05 Glucose 97 mg/dL (65-115) 03/02/22 04:05 Calculated Osmolality 282 mOsm/kg (285-295) L 03/02/22 04:05 Calcium 9.0 mg/dL (8.5-10.5) 03/02/22 04:05 Vitals Last Vital Signs Temp 97.5 F L 03/02/22 07:12 Pulse 6 L 03/02/22 11:08 Resp 16 03/02/22 11:08 BP 96/65 03/02/22 11:08 Pulse Ox 93 03/02/22 11:08 O2 Del Method 03/02/22 04:00 Discharge Plan Discharge Patient Disposition: Home Prescriptions: New Xarelto 15 mg tablet 15 mg PO QPM Qty: 30 11RF Rx Instructions: must administer with evening meal clopidogrel 75 mg tablet 75 mg PO DAILY Qty: 30 11RF Discontinued Xarelto 20 mg tablet 20 mg PO DAILY Qty: 90 3RF aspirin [Adult Aspirin Regimen] 81 mg tablet,delayed release (DR/EC) 81 mg PO DAILY Qty: 90 3RF No Action guaifenesin [Mucinex] 600 mg tablet extended release 12hr 600 mg PO Q12H PRN (Reason: Congestion) apple cider vinegar 500 mg tablet PO famotidine 20 mg tablet 20 mg PO BID Qty: 60 4RF Rx Instructions: for acid reflux and heartburn ascorbic acid (vitamin C) 500 mg tablet 500 mg PO DAILY ibuprofen 200 mg tablet 200 mg PO Q6H PRN (Reason: Pain) furosemide 40 mg tablet 40 mg PO DAILY Qty: 90 3RF isosorbide mononitrate 30 mg tablet extended release 24 hr 30 mg PO DAILY Qty: 90 3RF metoprolol succinate 25 mg tablet extended release 24 hr 25 mg PO DAILY Qty: 90 3RF nitroglycerin 0.4 mg tablet, sublingual 0.4 mg SUBLINGUAL Q5M PRN (Reason: chest pain) Qty: 25 3RF Rx Instructions: do not exceed 3 doses per episode potassium chloride 20 mEq tablet extended release 20 meq PO DAILY Qty: 90 3RF pravastatin 40 mg tablet 40 mg PO DAILY Qty: 90 3RF multivitamin Tablet 1 tab PO DAILY Discharge Orders: Discharge Order (Routine); Ordered 03/02/22 Ordered By: Mark Vogel Patient Instructions: Coronary Angioplasty (DC) Discharge Date/Time: 03/02/22 12:40 Discharge Attestations Time Spent in Discharge Care*: greater than 30 min Quality Metrics Clinical Quality Measures [ No reported AMI, CVA or VTE this stay] Coding Level of Care Code Acute Chg FW DC note Exam Detailed
[2022-03-02 13:01] VITALS: PULSE 60
--- NOTE | 2022-03-02 13:26 | PC.NURSE ---
Xarelto and Plavix prescriptions called to [facility].
== END 2022-03-02 13:45 | disposition home or self-care (01) ==
PROVIDERS: Admitting Provider Internal Medicine Cardiovascular Disease; PCP Electrodiagnostic Medicine; Visit Provider Internal Medicine
DX: I65.21 Occlusion and stenosis of right carotid artery (principal); R94.39 Abnormal result of other cardiovascular function study; R07.9 Chest pain, unspecified; I48.91 Unspecified atrial fibrillation; I10 Essential (primary) hypertension; Z95.0 Presence of cardiac pacemaker; I25.10 Atherosclerotic heart disease of native coronary artery without angina pectoris; Z86.718 Personal history of other venous thrombosis and embolism; Z86.711 Personal history of pulmonary embolism; Z95.1 Presence of aortocoronary bypass graft; F17.210 Nicotine dependence, cigarettes, uncomplicated
CPT/HCPCS: 36415; 80048; 85025; 85347; 93005; 93455; 96360; 96365; 99152; 99153; C1725; C1760; C1769; C1874; C1887; C1894; C9600; G0269; G0378; J1644; J2250; J2405; J3010; J3370; J3490; J7030; J7050; Q0163; Q9967

== ENCOUNTER → 2022-03-22 09:37 | Outpatient (BNVA) | payer MEDICARE, SELFPAY | PROVIDERS: PCP Electrodiagnostic Medicine; Visit Provider Nurse Practitioner Family | DX: I25.10 Atherosclerotic heart disease of native coronary artery without angina pectoris (principal); I10 Essential (primary) hypertension; I48.91 Unspecified atrial fibrillation; F17.210 Nicotine dependence, cigarettes, uncomplicated | CPT/HCPCS: 99214 ==

== ENCOUNTER → 2022-05-13 13:48 | Outpatient (BNVA) | payer MEDICARE, SELFPAY | PROVIDERS: PCP Electrodiagnostic Medicine; Visit Provider Internal Medicine | DX: I48.91 Unspecified atrial fibrillation (principal); I10 Essential (primary) hypertension; Z95.1 Presence of aortocoronary bypass graft; R07.9 Chest pain, unspecified; R06.02 Shortness of breath; F17.210 Nicotine dependence, cigarettes, uncomplicated; Z79.82 Long term (current) use of aspirin; Z79.01 Long term (current) use of anticoagulants; Z95.0 Presence of cardiac pacemaker; I25.10 Atherosclerotic heart disease of native coronary artery without angina pectoris | CPT/HCPCS: 99214 ==

== ENCOUNTER 2022-06-06 07:02 | Outpatient (CLI) | payer MEDICARE, SELFPAY ==
[2022-06-06 07:22] VITALS: PULSE 72; RESP 18; O2SAT 96
[2022-06-06] MEDS: albuterol 2.5 mg/3 mL Neb INHALATION (07:22)
[2022-06-06 07:26] VITALS: PULSE 62
== END 2022-06-06 07:03 | disposition home or self-care (01) ==
PROVIDERS: PCP Electrodiagnostic Medicine; Visit Provider Internal Medicine
DX: R06.02 Shortness of breath (principal)
CPT/HCPCS: 94060; 94726; 94729; J7613

== ENCOUNTER → 2022-11-11 14:39 | Outpatient (BNVA) | payer MEDICARE, SELFPAY | PROVIDERS: PCP Electrodiagnostic Medicine; Visit Provider Internal Medicine | DX: I48.91 Unspecified atrial fibrillation (principal); I10 Essential (primary) hypertension; Z95.1 Presence of aortocoronary bypass graft; R07.9 Chest pain, unspecified; F17.210 Nicotine dependence, cigarettes, uncomplicated; I25.10 Atherosclerotic heart disease of native coronary artery without angina pectoris; Z95.0 Presence of cardiac pacemaker; Z79.82 Long term (current) use of aspirin; Z79.01 Long term (current) use of anticoagulants | CPT/HCPCS: 99214 ==

== ENCOUNTER → 2022-12-26 16:31 | Outpatient (BNVA) | payer MEDICARE, SELFPAY | PROVIDERS: PCP Electrodiagnostic Medicine; Visit Provider Internal Medicine | DX: Z45.010 Encounter for checking and testing of cardiac pacemaker pulse generator [battery] (principal) | CPT/HCPCS: 93296 ==

== ENCOUNTER → 2023-02-24 16:53 | Outpatient (BNVA) | payer MEDICARE, SELFPAY | PROVIDERS: PCP Electrodiagnostic Medicine; Visit Provider Registered Nurse Neonatal Intensive Care | DX: S69.92XA Unspecified injury of left wrist, hand and finger(s), initial encounter (principal); W31.89XA Contact with other specified machinery, initial encounter | CPT/HCPCS: 73130 ==

== ENCOUNTER → 2023-09-10 13:57 | Outpatient (BNVA) | payer MEDICARE, SELFPAY | PROVIDERS: PCP Electrodiagnostic Medicine; Visit Provider Internal Medicine Cardiovascular Disease | DX: Z95.0 Presence of cardiac pacemaker (principal); Z79.01 Long term (current) use of anticoagulants; I48.91 Unspecified atrial fibrillation; I83.892 Varicose veins of left lower extremity with other complications; I25.10 Atherosclerotic heart disease of native coronary artery without angina pectoris; I10 Essential (primary) hypertension; Z72.0 Tobacco use | CPT/HCPCS: 99215 ==

== ENCOUNTER 2023-09-16 09:29 | Outpatient (CLI) | payer MEDICARE, SELFPAY ==
[2023-09-16 10:29] LABS: Basophils # 0.1 10^3/uL (0.0-0.1); Basophils % 1.6 %; Eosinophils # 0.4 10^3/uL (0.0-0.8); Eosinophils % 5.4 %; Hematocrit 44.5 % (37-53); Lymphocytes % 29.7 %; Mean Corpuscular HGB Conc 34.8 g/dL (30-55); Mean Corpuscular Hemoglobin 34.1 pg (27-33); Mean Platelet Volume 11.1 fL (7.4-10.4); Monocytes # 0.7 10^3/uL (0.2-0.9); Monocytes % 9.9 %; Neutrophils % 53.1 %; Nucleated Red Blood Cells % 0 %; Platelet Count 207 10^3/cmm (157-399); Red Blood Count 4.54 10^6/uL (3.85-5.65); Red Cell Distribution Width 13.2 % (12.1-15.1); White Blood Count 6.79 10^3/uL (3.29-11.43)
[2023-09-16 10:41] LABS: INR 1.05 (0.8-1.2)
== END 2023-09-16 09:30 | disposition home or self-care (01) ==
LOC: LAB 09:31
PROVIDERS: PCP Electrodiagnostic Medicine; Visit Provider Internal Medicine Cardiovascular Disease
DX: I48.91 Unspecified atrial fibrillation (principal); Z79.01 Long term (current) use of anticoagulants; I25.118 Atherosclerotic heart disease of native coronary artery with other forms of angina pectoris
CPT/HCPCS: 85025; 85610; 86850; 86900

== ENCOUNTER 2023-09-23 05:32 | Outpatient (CLI) | payer MEDICARE, SELFPAY ==
[2023-09-23] VITALS (40 sets, daily range): BP systolic 106–141; BP diastolic 69–93; PULSE 57–65; RESP 12–22; TEMP 36.6–36.8; O2SAT 93–99; BMI 32.5
--- NOTE | 2023-09-23 07:02 | W.PM.OPSUD ---
Surgery/Procedure H&P Update DATE OF PROCEDURE: September 23, 2023 DATE H&P PERFORMED: 09/10/23 H&P UPDATE INFORMATION: I have reviewed H&P completed within last 30 days, I have examined patient prior to procedure and No changes to prior documentation PREOP DIAGNOSIS: Pacemaker RODERICK PRIMARY INDICATION FOR PROCEDURE: Patient with a history of symptomatic bradycardia, pacemaker at RODERICK PLANNED PROCEDURE: Operation Date: 09/23/23 07:00 Proposed Procedures p Pacemaker Generator Change PPM Dual GEnerator Change(Not Applicable) - Donna Bond MD PATIENT REASSESSED PRIOR TO SEDATION, WITH NO CHANGE NOTED: Yes PHYSICAL EXAM: alert, oriented x 3, clear to auscultation bilaterally and regular rate & rhythm AIRWAY EVAL/ANESTHESIA PLAN: normal airway, see other exam findings, ASA III, Monitored Anesthesia, Local Anesthesia, Risks, benefits & alternatives of sedation and/or procedure discussed and Patient agrees to continue as planned
[2023-09-23] MEDS: nicotine 7 mg Patch 1 PATCH TRANSDERMA (07:10)
--- NOTE | 2023-09-23 08:20 | P.OP_ITS ---
Operative Report Date of procedure: September 23, 2023 Surgeon: Donna Bond MD Procedure: PROCEDURE: PACEMAKER REVISION PREOPERATIVE DIAGNOSIS: Pacemaker elective replacement indication. POSTOPERATIVE DIAGNOSIS: Pacemaker elective replacement indication. ESTIMATED BLOOD LOSS: Around milliliters. COMPLICATIONS: None. BRIEF HISTORY: The patient is 63-year-old white 2019@Sep who had a permanent pacemaker implantation for symptomatic bradycardia/intermittent atrial fibrillation. The patient was found to have elective replacement indication, during routine office followup evaluation. For further management of patient's c ondition for the symptomatic bradycardia, the patient required a pacemaker revision. Patient required a dual-chamber pacemaker for symptom relief and the need for AV synchrony The procedure was explained to the patient and in detail with the risks and benefits. The risks of bleeding, hematoma, vascular injury, infection and other concomitant complications were explained in detail, which the patient understood well and consented to proceed. PROCEDURES PERFORMED: 1. Explantation of the old pacemaker generator. 2. Implantation of the new generator. The patient brought to the Cardiac Loans Officer. The left side of the neck and the subclavian area were cleaned and draped in a sterile fashion. 1% Xylocaine was used for local anesthetic agent. A 2 inch long incision was made just below the previous pacemaker scar. By sharp and blunt dissection, the pacemaker pocket was accessed. The old generator was delivered from the pocket. The generator was detached from the lead. The new Medtronic generator was attached to the lead. The pacemaker pocket was copiously irrigated with vancomycin solution. Complete hemostasis was achieved. The lead was positioned behind the generator and the generator was attached to the pectoralis fascia by suturing with 0 Surgilon. Sponge counts were confirmed. The pacemaker pocket was closed in layers. Skin was approximated using 4-0 Vicryl. EXPLANTED DEVICE: Pacemaker Generator: Brand: Aidan AVILA Model number: [id number] Serial number: [id number]. Date of implant: 11/01/2015 IMPLANTED DEVICES: Ventricular Lead: Date of implantation: 11/01/2015 Model number: [id number] Serial number: [id number] Make: Medtronic. Atrial lead Date of implantation: 11/01/2015 Model number: [id number] Serial number: [id number] Make: Medtronic. Implanted Generator: Date of implantation : 09/23/2023 Brand: Farzana AVILA Sureazkiel. Model number: W1 Serial number: [id number] Make: Codefiedtronic Stimulation Threshold: The ventricular sensing was 14.5 millivolts. Ventricular lead impedance was 532 ohms and the pacing threshold was 0.75 volts at 0.4 milliseconds. The atrial sensing was 0.8 millivolts. Atrial lead impedance was 361 ohms and the pacing threshold could not be obtained because of the atrial fibrillation The pacemaker was set for VVIR mode with an upper rate of 130 and a lower rate of 60. A pressure dressing was applied over the pacemaker site. The patient was transferred back to medical floor in stable condition. Sponge counts were correct.
--- NOTE | 2023-09-23 08:28 | PC.NURSE ---
incision site to left chest wall intact and no bleeding noted. Pressure dressing in place. NAD noted.
--- NOTE | 2023-09-23 10:56 | PC.NURSE ---
Patient resting in bed, NAD noted at this time. Patient updated on plan of care. Will continue to monitor. Call light at bedside, within reach on patient. Patient denies any needs at this time. Incision site intact. No bleeding noted at this time.
[2023-09-23] MEDS: ceFAZolin 2,000 mg SDV 2000 MG IVP ×2 (15:35→23:15)
[2023-09-23] MEDS: water for injection-sterile 20 ML 999 ML (15:51)
[2023-09-23] MEDS: water for injection-sterile 20 ML (23:15)
--- NOTE | 2023-09-23 23:39 | ECG_ITS ---
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 Measurements Intervals [place] Rate: 60 P: 0 PA: 0 QRS: -62 QRSD: 214 T: 130 QT: 515 QTc: 517 Interpretive Statements ELECTRONIC VENTRICULAR PACEMAKER ABNORMAL RHYTHM ECG Compared to ECG 03/01/2022 09:28:56 No significant changes Electronically Signed On 09-23-2023 23:48:58 CDT by Donna Bond M.D. [id number]
--- NOTE | 2023-09-23 23:57 | PC.NURSE ---
pt called this nurse to bedside stating he had chest discomfort, recorded an EKG, and informed MD about situation, received no new orders.
[2023-09-24 00:13] VITALS: BP 103/60; PULSE 60; RESP 15; O2SAT 93
[2023-09-24 03:53] VITALS: BP 102/63; PULSE 60; RESP 15; TEMP 36.6; O2SAT 95
[2023-09-24] MEDS: water for injection-sterile 20 ML 200 ML (05:53)
[2023-09-24] MEDS: ceFAZolin 2,000 mg SDV 2000 MG IVP (05:53)
[2023-09-24 06:00] VITALS: PULSE 60
[2023-09-24 07:09] VITALS: BP 111/65; PULSE 60; RESP 13; TEMP 36.6; O2SAT 98
[2023-09-24] MEDS: potassium chloride ER 20 mEq Tablet PO (07:59)
[2023-09-24] MEDS: FUROsemide 40 mg Tablet PO (07:59)
[2023-09-24] MEDS: clopidogrel 75 mg Tablet PO (07:59)
[2023-09-24] MEDS: ascorbic acid 500 mg Tablet PO (07:59)
[2023-09-24] MEDS: metoprolol succinate ER (24 HR) 25 mg Tablet PO (07:59)
[2023-09-24] MEDS: atorvastatin 40 mg Tablet 20 MG PO (07:59)
[2023-09-24] MEDS: aspirin 81 mg EC Tablet PO (08:00)
[2023-09-24] MEDS: multivitamin therapeutic Tablet 1 TAB PO (08:00)
--- NOTE | 2023-09-24 08:45 | ECG_ITS ---
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 Measurements Intervals [place] Rate: 74 P: 0 AL: 0 QRS: -53 QRSD: 225 T: 146 QT: 464 QTc: 516 Interpretive Statements ELECTRONIC VENTRICULAR PACEMAKER Compared to ECG 09/23/2023 23:44:04 No significant changes Electronically Signed On 09-24-2023 9:43:26 CDT by Mark Borja M.D. [id number]
[2023-09-24 11:39] VITALS: BP 103/69; PULSE 61; RESP 20; TEMP 36.7; O2SAT 95
--- NOTE | 2023-09-24 12:23 | PC.NURSE ---
Discharge Note Patient discharged to home via POV accompanied by spouse. Discharge instructions reviewed with patient and/or sales and service representative. Mobile pharmacy medications and/or prescriptions provided. Belongings/home medications returned.
== END 2023-09-24 12:24 | disposition home or self-care (01) ==
LOC: CCL 05:33 → CSU 14:48
PROVIDERS: PCP Electrodiagnostic Medicine; Visit Provider Internal Medicine Cardiovascular Disease
DX: Z45.010 Encounter for checking and testing of cardiac pacemaker pulse generator [battery] (principal)
CPT/HCPCS: 33228; 36415; 93005; 96374; 96375; 97165; 99152; 99153; A4216; C1769; C1786; J0690; J2250; J2919; J3010; J3370; J3372; J7030; J7050

== ENCOUNTER 2023-10-16 07:47 | Outpatient (CLI) | payer MEDICARE, SELFPAY ==
--- NOTE | 2023-10-16 07:50 | CT_ITS ---
WS: [id number] CT ABDOMEN AND PELVIS WITH CONTRAST HISTORY: ABDOMINAL PAIN TECHNIQUE: Imaging performed of the abdomen and pelvis with IV contrast. Single phase imaging of the abdomen. Coronal and sagittal reformats are submitted. All CT scans at [facility] use at [facility] one of these dose optimization techniques: automated exposure control; mA and/or kV adjustment per patient size (includes targeted exams where dose is matched to clinical indication); or iterative re construction. IV CONTRAST: Omnipaque 350; 100 mL IV. Oral contrast: Yes. DLP: 960.53 mGy.cm COMPARISON: None available. Lower thorax: Mild dependent change at the LEFT lung base or scarring. Mild cardiomegaly. Pacer wires noted. No hiatal hernia. Liver/biliary system: Normal size with no intrahepatic dilatation. Gallbladder: Normally distended gallbladder. Small stone noted within the gallbladder lumen. Pancreas: Normal size pancreas and pancreatic duct. No adjacent inflammation. Spleen: Granulomata. Normal size. Adrenal glands: Normal. Right kidney: Normal. Left kidney: Normal. Aorta: Moderate atherosclerosis with no aneurysm. There is a short segment of no contrast enhancement within the proximal LEFT gastric artery. This could be due to artifact or thrombus. The remaining me senteric arteries are normal. Lymphadenopathy: None. Free fluid: None. GI tract: Normally distended stomach. No small bowel obstruction. Prior appendectomy. Mild diverticul ar disease throughout the distal colon. No acute diverticulitis. Abdominal wall: Fat containing umbilical hernia. Pelvis: No free fluid or adenopathy within the pelvis. Bones: L5 anterolisthesis by 6 mm. Bilateral pars defects at L5. No destructive bone lesions. CT/CT abdomen pelvis w con* [id number] IMPRESSION: 1. Focal short segment nonenhancement in the proximal LEFT gastric artery. Sma ll arterial thrombus not excluded. This also may be an area of artifact or volu me averaging as this is a very small artery at this location. If this is of cli nical concern CT angiogram of the aorta with attention to the celiac axis can b e obtained. 2. Suspect cholelithiasis. 3. Prior appendectomy. 4. No ascites or adenopathy. 5. Mild diverticulosis without acute diverticulitis.
[2023-10-16 08:59] LABS: Blood Urea Nitrogen 21 mg/dL (8-23)
[2023-10-16] MEDS: iohexol 350 mg/mL 500 mL Btl (per mL) PO (09:17)
[2023-10-16] MEDS: iohexol 350 mg/mL 500 mL Btl (per mL) IV (09:17)
== END 2023-10-16 07:48 | disposition home or self-care (01) ==
LOC: RAD 07:47
PROVIDERS: Radiology Diagnostic Radiology; PCP Electrodiagnostic Medicine; Visit Provider Electrodiagnostic Medicine
DX: R10.9 Unspecified abdominal pain (principal); Z90.49 Acquired absence of other specified parts of digestive tract; R93.5 Abnormal findings on diagnostic imaging of other abdominal regions, including retroperitoneum
CPT/HCPCS: 74177; 82565; 84520; Q9967

== ENCOUNTER → 2023-10-30 12:42 | Outpatient (BNVA) | payer MEDICARE, SELFPAY | PROVIDERS: PCP Electrodiagnostic Medicine; Visit Provider Nurse Practitioner Family | DX: R07.9 Chest pain, unspecified (principal); R06.02 Shortness of breath; I25.10 Atherosclerotic heart disease of native coronary artery without angina pectoris; Z95.0 Presence of cardiac pacemaker; Z87.891 Personal history of nicotine dependence | CPT/HCPCS: 99213 ==

== ENCOUNTER 2024-01-02 09:08 | Outpatient (CLI) | payer MEDICARE, SELFPAY ==
[2024-01-02 09:18] VITALS: BMI 32.5
--- NOTE | 2024-01-02 09:34 | ECG_ITS ---
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 The perfusion scan will be documented separately. DATA: Baseline heart rate was 64 beats per minute. Baseline blood pressure was 118/79 millimeters of mercury. Target heart rate was 156. Maximum heart rate achieved was 73. which was 46% of the predicted target heart rate. Maximum blood pressure was 122/81 millimeters of mercury. The reason for ending the test was completion of the protocol. The patient did not experience any symptoms. ELECTROCARDIOGRAM: BASELINE: Atrial fibrillation. Left axis. Left bundle branch block noted EXERCISE: After Lexiscan injection, no significant ST-T changes suggestive of ischemic noted. No arrhythmia noted. CONCLUSION: Please note due to baseline abnormality of the EKG specificity and sensitivity of the EKG portion of LexiScan MIBI stress test will be low 1. EKG not suggestive of ischemia 2. Lexiscan injection unremarkable. 3. Perfusion scan will be documented separately. Electronically Signed On 01-11-2024 15:15:42 CDT by CELIA JAIMES [id number]
--- NOTE | 2024-01-02 09:35 | NMCV_ITS ---
NM tigist perf SPECT r/s* [id number] Marvin Plasencia Age: 63 Gender: M : 1960 Exam Date: 01/02/2024 10:30 Ordering Phys: Tasneem Dunlap Technologist: TIFFANIE Gilmore Exam Location: [facility] Indications: cp STRESS TEST Please see separate stress test report in [facility] for full findings IMAGE PROTOCOL Rest/Stress 1 Lexiscan Day Radiopharmaceutical Dose (mCi) Administration Site Administered by Rest: Tc-99m 10.5 IV Chichi Casterjon, VALET Sestamibi Stress:Tc-99m 32.5 IV Chichi Lemonsgle, VALET Sestamibi Rest: 02-Jan-2024 60 Discovery 630 Stress: 02-Jan-2024 30 Discovery 630 0.4mg Lexiscan. Images obtained in supine and prone position. SPECT RESULTS Technical Quality: Good Raw Data Analysis: Normal Image Corrections: No attenuation or motion correction applied Summed Stress Score: 20 Summed Rest Score: 10 Summed Difference Score: 10 PERFUSION FINDINGS Moderate area of moderate to severely decreased tracer uptake involving the basal mid and apical inferior, basal and mid inferolateral, mid anterolateral, apical lateral, apical anterior and apex. Significant reversibility was noted in the mid anterolateral, mid inferolateral and apical lateral region. Slight reversibility was noted in the basal inferior, inferolateral, apical anterior and LV apex. FUNCTIONAL RESULTS (calculated via Gated SPECT) Stress Image LV EF (%): 45 Stress EDV (mL):165 TID: 1.02 Stress ESV (mL):91 FUNCTIONAL FINDINGS: Segmental wall motion analysis revealing diffuse hypokinesis of the septum and the LV apex. IMPRESSIONS 1. Myocardial perfusion imaging revealing moderate area of moderate to severely decreased tracer uptake involving the inferior, inferolateral, anterolateral and apical regions with significant reversibility suggesting myocardial scarring with ischemia in the distribution of the all the 3 coronary arteries. There ischemia is predominantly seen in the distribution of the circumflex artery with minimal involvement of the right coronary artery and the left descending artery.. 2. Slightly diminished LV ejection fraction of 45%. 3. LV wall motion analysis revealed diffuse hypokinesia of the LV apex and the septum. 4. Dilated LV cavity with an end-systolic volume of 91 mL. Compared to the study from 01/21/2022, the ischemic burden appears to have increased, summed difference score of 10 compared to the previous score of 4. Dr Donna Bond MD FACC (Electronically Signed) Final Date: 04 January 2024 20:56 S
[2024-01-02] MEDS: regadenoson 0.4 Mg/5 ml Syringe IVP (11:40)
[2024-01-02 11:51] VITALS: BP 116/70; PULSE 60
== END 2024-01-02 09:09 | disposition home or self-care (01) ==
PROVIDERS: PCP Electrodiagnostic Medicine; Visit Provider Nurse Practitioner Family
DX: Z95.1 Presence of aortocoronary bypass graft (principal); Z86.79 Personal history of other diseases of the circulatory system; R94.39 Abnormal result of other cardiovascular function study
CPT/HCPCS: 36415; 78452; 93017; 96374; A9500; J2785

== ENCOUNTER 2024-01-13 09:18 | Outpatient (CLI) | payer MEDICARE, SELFPAY ==
[2024-01-13 10:32] LABS: Anion Gap 14.3 (5-19); Blood Urea Nitrogen 18 mg/dL (8-23); Calcium 8.7 mg/dL (8.5-10.5); Carbon Dioxide 25 mmol/L (22-29); Chloride 102 mmol/L (98-107); Glomerular Filtration Rate 67.4 mL/min (90-130); Glucose 117 mg/dL (65-115); NT Pro B Type Natriuretic Pept 979 pg/mL (0-125); Osmolality Calculated 287 mOsm/kg (285-295); Potassium 4.3 mmol/L (3.5-5.1); Sodium 137 mmol/L (136-145)
== END 2024-01-13 09:19 | disposition home or self-care (01) ==
LOC: LAB 09:19
PROVIDERS: PCP Electrodiagnostic Medicine; Visit Provider Nurse Practitioner Family
DX: I50.9 Heart failure, unspecified (principal); R06.02 Shortness of breath
CPT/HCPCS: 36415; 80048; 83880

== ENCOUNTER 2024-01-19 05:42 | Outpatient (CLI) | payer MEDICARE, SELFPAY ==
[2024-01-19] VITALS (7 sets, daily range): BP systolic 108–126; BP diastolic 73–84; PULSE 60–66; RESP 15–18; TEMP 36.5–36.8; O2SAT 95–98; BMI 33.2
--- NOTE | 2024-01-19 06:00 | XACV_ITS ---
Exam Room: 2 Ht: 191 cm Wt: 121 kg BSA: 2.56 m2 Gender: Male : 1960 Any Known Allergies: Other Exam Priority: Routine Procedure(s): Procedure Description: Diagnostic procedure Procedure Description: Left Heart Catheterization Procedure Description: Left ventriculography Procedure Description: Venous Graft Catheterization Procedure Description: DAMON Graft Catheterization Procedure Description: Coronary Angiography Varun RIVERS; Diagnostic Cath Status: Elective Diagnostic Findings * The left main is a medium caliber vessel with a moderate calcification. * The left and descending artery appears to be totally occluded proximally after the first septal solutions executive security. Occluded stent was noted in the mid LAD. * The left circumflex artery is totally occluded near to the ostium. A long occluded stent was noted to in the proximal segment. * The right coronary artery appears to be codominant vessel with has a patent stented segment proximally. * The saphenous venous graft to the third obtuse marginal artery was found to be widely patent. * The saphenous graft to the second obtuse marginal artery also was found to be widely patent at the anastomotic sites. The mid shaft of the graft was found to have around 30% eccentric narrowing. No other significant stenotic lesions were noted.. * The DAMON to the LAD was found to be widely patent. The graft was of normal caliber. No severe stenotic lesions were noted. It was found to be attached to the distal LAD. No significant lesions were noted in the distal LAD.. Conclusions 1. 63-year-old white male with a history of coronary disease status post three-vessel coronary bypass surgery, presenting with increasing episodes of chest pain. Abnormal Myocardial perfusion imaging revealing reversible defects in the distribution of all the 3 coronary arteries. In view of his ongoing symptoms, in order to further evaluate the coronary status as well as the graft status, a cardiac catheterization was recommended. Patient underwent left heart catheterization with left and right coronary angiogram, graft angiogram and LV angiogram. The findings are as follows. 2. Moderate calcifications in the left main artery. Total occlusion of the left anterior descending artery after the first septal solutions executive security. Total occlusion of the circumflex artery near to the ostium. Occluded stents were noted in the proximal LAD and circumflex arteries. Codominant right coronary artery was found to have a patent stented segment proximally with no significant stenotic lesions. Patent saphenous venous grafts to the obtuse marginal arteries. Patent DAMON to the LAD. LV ejection fraction of around 36% with mildly dilated LV cavity. LVEDP of 8 mmHg. Diagnostic RX Recommendation: medical therapy and/or counseling LV EDP: 8 mmHg Ventriculography Ejection Fraction: 36.0 % Left Ventriculography Findings: * The LV gram was performed in the DIXON position. The LV cavity patient be mildly dilated. There was diffuse hypokinesia of the left-ventricular. The overall ejection fraction was around 36%. Normal obvious filling defects were noted. The ventriculogram was of suboptimal quality because of poor filling of the dye. The LVEDP was 8 which went up to 9 following the LV angiogram.. Pressures Phase:Rest AO : 94 / 60 ( 74 ) @ 8:49:00 AM 74 / 64 ( 58 ) @ 8:52:00 AM 109 / 63 ( 82 ) @ 9:11:00 AM 110 / 59 ( 81 ) @ 9:11:00 AM LV : 98 / -7 / 8 @ 9:09:00 AM 103 / 0 / 9 @ 9:11:00 AM 106 / 0 / 9 @ 9:11:00 AM Valves Phase:DefaultPhase AV : 0.0 @ 8:17:44 AM AV Mean Gradient: 0.0 @ 8:17:44 AM Clinical Evaluation EBL: 5mL-10mL Procedural Details Procedure Consent Obtained. Admit Source: Out Patient. Pre-Procedure Time Out. Identified patient by full name and date of as verbalized by the patient/guarantor. Does the consent match the physician's order: Yes. Accurate & Complete Informed Consent: Yes. Inpatient/Outpatient History & Physical on Chart: Yes. If H&P is completed, is and addenduem needed: Yes; If yes, is the addendum complete: Yes. Visualize and Verify Site with Patient/Guarantor: N/A. Relevant Radiology Images available: N/A. The risks, benefits, and alternatives of sedation and/or procedure were discussed by physician. The patient agrees to continue. Procedure started. [facility] Clinical Fraility Score: 3: Managing Well. [place] Indications: Worsening Angina. Chest Pain Symptom Assessment: Typical Angina Symptoms. Correct patient, site and procedure confirmed by cath team. Current diagnosis: Chest Pain, Abnormal stress test. PERRLA. Strong, equal hand manager clinical bilaterally. Lungs clear x 5 lobes. IV Site on Arrival: 20 gauge in the right forearm. IV Fluids: 0.9% NaCl at KVO. 0 mL infused prior to label machine operator. Pre Procedural Pulses: bilateral radial was 2+. Pre Procedural Pulses: bilateral dorsalis pedis was 1+. Pre Procedural Pulses: bilateral posterior tibial was 1+. Oxygen started at 2liters/min via nasal canula. right groin was prepped with Betadine then draped in the usual sterile fashion. Baseline sample Acquired. HR: 62 BPM. Physician notified. Physician arrived. Physician scrubbed in. Immediate Pre-Procedure Time Out. Correct Patient: Yes; Correct Procedure: Yes; Correct Site: Yes; Correct Patient Position: Yes; Correct Supplies: Yes; Dried Flammable Prep: Yes; Blood Products Available: No;. Lidocaine 1% infiltrated to the right groin. Arterial access obtained. A 5 maltese JL4 catheter in over wire. Multiple views taken of left coronary artery. Catheter removed over the standard wire. A 5 maltese JR4 catheter in over wire. Multiple views taken of right coronary artery. SVG's to OM visualized and patent. Second SVG to OM visualized and patent. Catheter redirected. Catheter removed over the exchange wire. A 5 maltese IM catheter in over wire. Exchange wire out. DAMON to LAD visualized. Catheter removed over the standard wire. A 5 maltese Angled Pig catheter in over wire. EDP Sample taken: LV 98/-8,8; HR: 60 BPM; SpO2: 97%. LV gram performed in DIXON @ 10 mL/second for a total of 30 mL. EDP Sample taken: LV 103/-1,9; HR: 60 BPM; SpO2: 98%. Pullback taken: LV 106/0,9; AO 109/63(82); Mean: 0mmHg, Peak to Peak: 0mmHg, SEP: 6sec/min; HR: 60 BPM; SpO2: 98%. Catheter removed over the standard wire. Physician scrubbed out. Post Procedure: Pulses reassessed and unchanged. PERRLA. Strong, equal hand manager clinical bilaterally. No VTE prophylaxis required. Medication's Wasted: Lidocaine 1% = 10 mL. Medication's Wasted: Other = Fentanyl 75mcg. Total IV fluids: 275 mL. A Suture was successful obtaining hemostatsis at the Right Femoral artery insertion site. Sheath(s) sutured into position with 2-0 silk and sterile 4x4's and Op-site applied over the site. No oozing or signs and symptoms of hematoma noted. Arterial sheath flushed and connected to tranducer and pressure bag with heparinized saline. Post-op diagnosis: Multi-vessel CAD, Patent bypass grafts. Complications: None. Estimated blood loss: 5mL-10mL. Responsiveness - Normal response to verbal stimuli; alert and oriented, PERRLA. Airway - Unaffected, no intervention required; spontaneous ventilation. Circulation: W/N/L, pulses unchanged. Nausea/Vomiting: No. Procedure completed. Patient transferred by bed to CPRU. Vital chart was stopped. Access Site Site: Right Femoral artery Sheath Size: 6 Fr Hemostasis Method: Suture Hemostasis Success: Successful Procedure Medications Start: 7:32 AM Stop: 7:32 AM Medication: Versed Amount: 1 mg Route: I.V. Start: 7:32 AM Stop: 7:32 AM Medication: Fentanyl Amount: 25 mcg Route: I.V. Start: 7:46 AM Stop: 7:46 AM Medication: Versed Amount: 1 mg Route: I.V. Start: 7:52 AM Stop: 7:52 AM Medication: 0.9% Saline Amount: 250 ml Route: I.V. bolus Start: 8:01 AM Stop: 8:01 AM Medication: Heparin Amount: 1500 units Route: I.V. I, the attending physician, have reviewed and verified all procedure medications. Yes, all medications given per verbal order History/Risk Factors Hypertension: Yes Dyslipidemia: Yes Peripheral Arterial Disease (PAD): No Myocardial Infarction (CT): No Obesity: No Renal Disease: No Tobacco Use: Former Prior Interventions PCI: Yes CABG: Yes Valve Surgery: No Date of PCI: 03/01/2022 Report Signatures Finalized by Dr Donna Bond MD [facility] on 01/19/2024 09:03 PM
[2024-01-19 06:40] LABS: Basophils # 0.1 10^3/uL (0.0-0.1); Basophils % 1.7 %; Eosinophils # 0.5 10^3/uL (0.0-0.8); Eosinophils % 7.3 %; Hematocrit 46.1 % (37-53); Lymphocytes # 1.6 10^3/uL (0.8-4.8); Lymphocytes % 24.6 %; Mean Corpuscular HGB Conc 34.3 g/dL (30-55); Mean Corpuscular Hemoglobin 33.3 pg (27-33); Mean Corpuscular Volume 97.3 fl (82-101); Mean Platelet Volume 10.7 fL (7.4-10.4); Monocytes # 0.8 10^3/uL (0.2-0.9); Monocytes % 11.3 %; Neutrophils # 3.64 10^3/uL (1.8-7.7); Neutrophils % 54.9 %; Nucleated Red Blood Cells % 0 %; Platelet Count 192 10^3/cmm (157-399); Red Blood Count 4.74 10^6/uL (3.85-5.65); Red Cell Distribution Width 12.9 % (12.1-15.1); White Blood Count 6.62 10^3/uL (3.29-11.43)
[2024-01-19] MEDS: diphenhydrAMINE 50 mg Capsule PO (06:45)
[2024-01-19 06:59] LABS: Anion Gap 15.2 (5-19); Blood Urea Nitrogen 17 mg/dL (8-23); Calcium 8.4 mg/dL (8.5-10.5); Carbon Dioxide 24 mmol/L (22-29); Chloride 104 mmol/L (98-107); Creatinine Clr Calc Pharmacy 87.0503; Glucose 111 mg/dL (65-115); Osmolality Calculated 290 mOsm/kg (285-295); Potassium 4.2 mmol/L (3.5-5.1); Sodium 139 mmol/L (136-145)
--- NOTE | 2024-01-19 07:29 | PM.HP ---
Providers/Chief Complaint Admitting Physician: JOANIE Bond MD Primary Care Provider: Ghanshyam Elam DO Chief Complaint: R94.39 History of Present Illness Marvin Plasencia Jr is a 63 year old male with a history of atherosclerotic heart disease and status post two-vessel coronary bypass surgery, is presenting with complaints of increasing episodes of chest pain. He had a Myocardial perfusion imaging which was found to be abnormal suggesting ischemia in distribution of all the 3 coronary arteries. For further evaluation of his coronary status as well as the graft status, a cardiac catheterization was recommended. Patient had the most recent cardiac catheterization in 2021. He was found to have a high-grade lesion in the proximal right coronary artery which was intervened. He is a DAMON to the LAD was found to be atretic with no significant disease in the left and descending artery. The circumflex artery was totally occluded proximally. The saphenous venous graft to the OM1 and OM 2 were found to be patent. Patient is complaining of episodes of tight feeling in the lower substernal region sometimes lasting for several hours. Medications/Allergies Home Medications Medication Instructions Recorded Confirmed Last Taken Type multivitamin 1 tab PO DAILY 10/28/19 01/19/24 01/17/24 08:00 History apple cider vinegar 500 mg tablet 500 mg PO DAILY 09/25/20 01/19/24 01/17/24 08:00 History ascorbic acid (vitamin C) 500 mg 500 mg PO DAILY 04/02/21 01/19/24 01/17/24 08:00 History tablet ibuprofen 200 mg tablet 200 mg PO Q6H PRN Pain 04/02/21 01/19/24 01/17/24 08:00 History nitroglycerin 0.4 mg sublingual 0.4 mg sublingual Q5M PRN chest 04/02/21 01/19/24 01/17/24 08:00 Rx tablet pain #25 tabs famotidine 20 mg tablet 20 mg PO BID PRN Acid Reflux 03/22/22 01/19/24 01/17/24 08:00 History magnesium 250 mg tablet 250 mg PO DAILY 03/22/22 01/19/24 01/17/24 08:00 History aspirin 81 mg tablet,delayed 81 mg PO DAILY #90 tabs 11/11/22 01/19/24 01/19/24 05:00 Rx release (Adult Aspirin Regimen) clopidogrel 75 mg tablet 75 mg PO DAILY #30 tabs 11/11/22 01/19/24 01/17/24 08:00 Rx furosemide 40 mg tablet 40 mg PO DAILY PRN edema #90 tabs 11/11/22 01/19/24 01/17/24 08:00 Rx metoprolol succinate 25 mg 25 mg PO DAILY #90 tabs 11/11/22 01/19/24 01/17/24 08:00 Rx tablet,extended release 24 hr potassium chloride 20 mEq 20 meq PO DAILY #90 tabs 11/11/22 01/19/24 01/17/24 08:00 Rx tablet,extended release pravastatin 40 mg tablet 40 mg PO DAILY #90 tabs 11/11/22 01/19/24 01/19/24 05:00 Rx rivaroxaban 15 mg tablet (Xarelto) 15 mg PO QPM #90 tabs 11/11/22 01/19/24 01/16/24 08:00 Rx Allergies Allergy/AdvReac Type Severity Reaction Status Date / Time chlorhexidine Allergy K[facility]ace Verified 01/19/24 06:32 [facility] r PFSH Acute PFSH: Medical History Hx of cardiac pacemaker MIGUEL ANGEL (obstructive sleep apnea) Hyperlipemia Hx of coronary artery disease Hx of arteriosclerotic cardiovascular disease Hx of pulmonary embolus Hx of deep venous thrombosis History of atrial fibrillation History of hypertension Surgical History Hx of elbow surgery History of PTCA Hx of CABG Social History Smoking and tobacco/nicotine status: former use of tobacco/nicotine Vitals/I&O/Wt Last Vital Signs Temp 97.7 F 01/19/24 06:47 Pulse 65 01/19/24 06:47 Resp 16 01/19/24 06:47 BP 114/75 01/19/24 06:47 Pulse Ox 95 01/19/24 06:47 O2 Del Method Room Air 01/19/24 06:47 Weight last 48 hrs Weight 266 lb Physical Exam Narrative: GENERAL: The patient is alert and oriented times three. Not in any acute distress. HEENT: No significant pallor, icterus or lymphadenopathy.Oral cavity: There are no mucous membrane lesions. NECK: Trachea appears to be central. No masses noted. No JVD or thyromegaly appreciated. RESPIRATORY: Chest is symmetrical. No intercostals muscle retraction or any accessory muscle activation. There is no chest wall tenderness. Breath sounds are heard bilaterally. No rales or rhonchi heard. No evidence of any consolidation. BREASTS: Deferred. HEART: The heart sounds are normal. No S3 or S4. Short systolic murmur in the left sternal border. No diastolic murmurs. No pericardial rub ABDOMEN: No vessel pulsations or distention. No tenderness. No organomegaly appreciated. Bowel sounds are normally heard. : Deferred. RECTAL: Deferred. LYMPHATIC: No lymphadenopathy noted in the neck. EXTREMITIES: No edema or cyanosis. No clubbing. MUSCULOSKELETAL: No acute joint deformities or swelling SKIN: There are no significant rashes or ecchymosis NEUROPSYCHIATRIC: The patient is alert and oriented x3. Appears to be in a good mood. No tremors or rigidity noted. Data 01/19/24 06:07 01/19/24 06:07 Other Labs: Laboratory Last Values WBC 6.62 10^3/uL (3.29-11.43) 01/19/24 06:07 RBC 4.74 10^6/uL (3.85-5.65) 01/19/24 06:07 Hgb 15.80 g/dL (11.27-16.99) 01/19/24 06:07 Hct 46.1 % (37-53) 01/19/24 06:07 MCV 97.3 fl (82-101) 01/19/24 06:07 MCH 33.3 pg (27-33) H 01/19/24 06:07 MCHC 34.3 g/dL (30-55) 01/19/24 06:07 RDW 12.9 % (12.1-15.1) 01/19/24 06:07 Plt Count 192 10^3/cmm (157-399) 01/19/24 06:07 MPV 10.7 fL (7.4-10.4) H 01/19/24 06:07 Neut % (Auto) 54.9 % 01/19/24 06:07 Lymph % (Auto) 24.6 % 01/19/24 06:07 [place] % (Auto) 11.3 % 01/19/24 06:07 Eos % (Auto) 7.3 % 01/19/24 06:07 Baso % (Auto) 1.7 % 01/19/24 06:07 Neut # (Auto) 3.64 10^3/uL (1.8-7.7) 01/19/24 06:07 Lymph # (Auto) 1.6 10^3/uL (0.8-4.8) 01/19/24 06:07 [place] # (Auto) 0.8 10^3/uL (0.2-0.9) 01/19/24 06:07 Eos # (Auto) 0.5 10^3/uL (0.0-0.8) 01/19/24 06:07 Baso # (Auto) 0.1 10^3/uL (0.0-0.1) 01/19/24 06:07 Nucleated RBC % (auto) 0 % 01/19/24 06:07 Nucleated RBCs # 0.0 /100WBC 01/19/24 06:07 Sodium 139 mmol/L (136-145) 01/19/24 06:07 Potassium 4.2 mmol/L (3.5-5.1) 01/19/24 06:07 Chloride 104 mmol/L (98-107) 01/19/24 06:07 Carbon Dioxide 24 mmol/L (22-29) 01/19/24 06:07 Anion Gap 15.2 (5-19) 01/19/24 06:07 BUN 17 mg/dL (8-23) 01/19/24 06:07 Creatinine 1.2 mg/dL (0.7-1.2) 01/19/24 06:07 GFR Calculation 61.0 mL/min (90-130) L 01/19/24 06:07 Glucose 111 mg/dL (65-115) 01/19/24 06:07 Calculated Osmolality 290 mOsm/kg (285-295) 01/19/24 06:07 Calcium 8.4 mg/dL (8.5-10.5) L 01/19/24 06:07 Other data: Myocardial perfusion imaging on 01/02/2024 . Myocardial perfusion imaging revealing moderate area of moderate to severely decreased tracer uptake involving the inferior, inferolateral, anterolateral and apical regions with significant reversibility suggesting myocardial scarring with ischemia in the distribution of the all the 3 coronary arteries. There ischemia is predominantly seen in the distribution of the circumflex artery with minimal involvement of the right coronary artery and the left descending artery.. 2. Slightly diminished LV ejection fraction of 45%. 3. LV wall motion analysis revealed diffuse hypokinesia of the LV apex and the septum. 4. Dilated LV cavity with an end-systolic volume of 91 mL. Compared to the study from 01/21/2022, the ischemic burden appears to have increased, summed difference score of 10 compared to the previous score of 4. A&P Assessment and plan (1) Abnormal cardiovascular stress test: The perfusion scan is suggestive of ischemia in the distribution of all the 3 coronary arteries. For further evaluation of the coronary status as well as the graft status, patient requires a cardiac catheterization. The risk of bleeding, hematoma, vascular injury, myocardial infarction, myocardial perforation, malignant cardiac arrhythmias ,CVA, renal failure and other concomitant complications were explained in detail. Patient understood this well and consented to proceed. (2) Atherosclerotic heart disease of [place] coronary artery with other forms of angina pectoris: As mentioned above. Most recent cardiac cauterization was in 2021. He had a PCI of the right coronary artery at that time. (3) Hx of cardiac pacemaker: The pacemaker function is appropriate. Will continue on the current management. (4) History of hypertension: The blood pressure seems to be in the normal range. (5) History of atrial fibrillation: Patient is off the oral anticoagulation at this time. (6) Varicose veins of left leg with edema: Clinically seems to be stable. No new symptoms Plan Based on the angiogram findings, further recommendations will be made. Attestations Medical Necessity Statement*: Patient may require 1 midnight stay Coding Level of Care Code 41179 Diagnoses Abnormal cardiovascular stress test R94.39 Atherosclerotic heart disease of [place] coronary artery with other forms of angina pectoris I25.118 Hx of cardiac pacemaker Z95.0 History of hypertension Z86.79 History of atrial fibrillation Z86.79 Varicose veins of left leg with edema I83.892
--- NOTE | 2024-01-19 07:35 | W.PM.OPSUD ---
Surgery/Procedure H&P Update DATE OF PROCEDURE: January 19, 2024 DATE H&P PERFORMED: 01/19/24 H&P UPDATE INFORMATION: I have reviewed H&P completed within last 30 days, I have examined patient prior to procedure and No changes to prior documentation PREOP DIAGNOSIS: ASHD PRIMARY INDICATION FOR PROCEDURE: Abnormal Myocardial perfusion imaging PLANNED PROCEDURE: Operation Date: 01/19/24 07:00 Proposed Procedures p Cardiac Catheterization(Left) - Donna Bond MD PATIENT REASSESSED PRIOR TO SEDATION, WITH NO CHANGE NOTED: Yes PHYSICAL EXAM: alert, oriented x 3, clear to auscultation bilaterally and regular rate & rhythm AIRWAY EVAL/ANESTHESIA PLAN: normal airway, see other exam findings, ASA III, Monitored Anesthesia, Local Anesthesia, Risks, benefits & alternatives of sedation and/or procedure discussed and Patient agrees to continue as planned
--- NOTE | 2024-01-19 08:32 | SUR.PHASEII ---
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 Status post cardiac catheterization via the right femoral approach. Site is hemostatic and free of hematoma formation at this time. Pressure line with transducer intact. Vitals and assessments per flowsheets. Family brought to bedside. MD discussed findings prior to patient arrival with family. Call light within reach. Informed to call for needs.
--- NOTE | 2024-01-19 08:52 | ECG_ITS ---
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
[2024-01-19] MEDS: clopidogrel 75 mg Tablet PO (09:11)
[2024-01-19] MEDS: ascorbic acid 500 mg Tablet PO (09:11)
[2024-01-19] MEDS: ALPRAZolam 0.5 mg Tablet 0.25 MG PO (09:11)
[2024-01-19] MEDS: potassium chloride ER 20 mEq Tablet PO (09:11)
[2024-01-19] MEDS: magnesium oxide 400 mg tablet PO (09:11)
[2024-01-19] MEDS: multivitamin therapeutic Tablet 1 TAB PO (09:11)
[2024-01-19] MEDS: metoprolol succinate ER (24 HR) 25 mg Tablet PO (09:11)
[2024-01-19] MEDS: aspirin 81 mg EC Tablet PO (09:11)
--- NOTE | 2024-01-19 09:19 | SUR.PHASEII ---
Transfer Patient taken to CSU via bed. 12 lead and prn xanax to be given on CSU. Condition stable. Reported off to Suzanne. Assisted with 12 lead. Results to will. Dr Bond made aware.
[2024-01-19] MEDS: atorvastatin 40 mg Tablet 20 MG PO (09:20)
[2024-01-19 11:31] LABS: Partial Thromboplastin Time 28.7 SECONDS (23.9-36.7)
--- NOTE | 2024-01-19 12:21 | PC.NURSE ---
Sheath removed at 1156am without incident. No hematoma noted. Patient's blood pressure dropped slightly so patient was placed in trendelenburg which improved. Blood pressure is currently 106/72. Patient resting in bed watching tv.
== END 2024-01-19 17:49 | disposition home or self-care (01) ==
LOC: CCL 05:50 → CSU 08:19
PROVIDERS: PCP Electrodiagnostic Medicine; Visit Provider Internal Medicine Cardiovascular Disease
DX: I25.118 Atherosclerotic heart disease of native coronary artery with other forms of angina pectoris (principal); I25.82 Chronic total occlusion of coronary artery; Z95.0 Presence of cardiac pacemaker; Z86.79 Personal history of other diseases of the circulatory system; I83.892 Varicose veins of left lower extremity with other complications; Z79.01 Long term (current) use of anticoagulants; I10 Essential (primary) hypertension; E78.5 Hyperlipidemia, unspecified; Z87.891 Personal history of nicotine dependence; Z95.1 Presence of aortocoronary bypass graft; G47.33 Obstructive sleep apnea (adult) (pediatric)
CPT/HCPCS: 36415; 80048; 85025; 85730; 93005; 93459; 96365; 96374; 96375; 99152; 99153; C1769; C1887; C1894; J1644; J2250; J3010; J7030; J7050; Q0163; Q9967

== ENCOUNTER → 2024-02-02 07:42 | Outpatient (BNVA) | payer MEDICARE, SELFPAY | PROVIDERS: PCP Electrodiagnostic Medicine; Visit Provider Nurse Practitioner Family | DX: I25.10 Atherosclerotic heart disease of native coronary artery without angina pectoris (principal); I50.20 Unspecified systolic (congestive) heart failure; F17.210 Nicotine dependence, cigarettes, uncomplicated | CPT/HCPCS: 99214 ==

== ENCOUNTER 2024-02-05 14:17 | Outpatient (CLI) | payer MEDICARE, SELFPAY ==
--- NOTE | 2024-02-05 14:25 | CTR_ITS ---
PROCEDURE INFORMATION: Exam: CTA Abdominal Aorta and Bilateral Lower Extremities (Run-off) With Contrast Exam date and time: 02/05/2024 2:59 PM Age: 63 years old Clinical indication: Abdominal pain; Localized; Lower; Prior surgery; Surgery date: 6+ months; Surgery type: Occlusion of artery; PT states low pelvic pain below umbilicus wo trauma; Bilat leg swelling, primarily lt leg TECHNIQUE: Imaging protocol: Computed tomographic angiography of the of the abdominal aorta, pelvis and bilateral lower extremities with contrast. 3D rendering (Not supervised by radiologist): MIP and/or 3D reconstructed images were created by the technologist. Radiation optimization: All CT scans at this facility use at least one of these dose optimization techniques: automated exposure control; mA and/or kV adjustment per patient size (includes targeted exams where dose is matched to clinical indication); or iterative reconstruction. Contrast material: OMNIPAQUE 350; Contrast volume: 125 ml; Contrast route: INTRAVENOUS (IV); COMPARISON: CT abdomen pelvis w con* [id number] 10/16/2023 9:11 AM RADIATION DOSE METRICS: Total DLP (mGy-cm): 1013.32 FINDINGS: Aorta: No aortic aneurysm. No aortic dissection. Prominent infrarenal plaque is noted. Celiac trunk and mesenteric arteries: No occlusion or significant stenosis. Renal arteries: No occlusion or significant stenosis. Right iliac arteries: No occlusion or significant stenosis. Right femoral/popliteal arteries: No occlusion or significant stenosis. Right infrapopliteal arteries: No occlusion or significant stenosis. Left iliac arteries: 40% stenosis caused by soft plaque. Left femoral/popliteal arteries: No occlusion or significant stenosis. Left infrapopliteal arteries: No occlusion or significant stenosis. Liver: No mass. Gallbladder and biliary ducts: Unremarkable. No calcified stones. No ductal dilation. Pancreas: Unremarkable. No mass. No ductal dilation. Spleen: Normal. No splenomegaly. Adrenal glands: Normal. No mass. Kidneys and ureters: Normal. No mass. Stomach and bowel: Unremarkable. No obstruction. No mucosal thickening. Appendix: No evidence of appendicitis. Urinary bladder: Unremarkable. No mass. Reproductive: Unremarkable as visualized. Intraperitoneal space: Unremarkable. No free air. No significant fluid collection. Lymph nodes: No lymphadenopathy. Bones/joints: No acute fracture. No dislocation. Soft tissues: There is a small umbilical hernia containing mesenteric fat. 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
[2024-02-05] MEDS: iohexol 350 mg/mL 500 mL Btl (per mL) IV ×2 (15:08→15:15)
== END 2024-02-05 14:18 | disposition home or self-care (01) ==
LOC: RAD 14:18
PROVIDERS: PCP Electrodiagnostic Medicine; Visit Provider Electrodiagnostic Medicine
DX: I74.8 Embolism and thrombosis of other arteries (principal); I70.8 Atherosclerosis of other arteries
CPT/HCPCS: 75635

== ENCOUNTER → 2024-02-17 09:54 | Outpatient (BNVA) | payer MEDICARE, SELFPAY | PROVIDERS: PCP Electrodiagnostic Medicine; Visit Provider Nurse Practitioner Family | DX: I11.0 Hypertensive heart disease with heart failure (principal); I50.22 Chronic systolic (congestive) heart failure; F17.210 Nicotine dependence, cigarettes, uncomplicated | CPT/HCPCS: 99214 ==

== ENCOUNTER → 2024-05-31 13:49 | Outpatient (BNVA) | payer MEDICARE, SELFPAY | PROVIDERS: PCP Electrodiagnostic Medicine; Visit Provider Internal Medicine Cardiovascular Disease | DX: I25.118 Atherosclerotic heart disease of native coronary artery with other forms of angina pectoris (principal); I83.892 Varicose veins of left lower extremity with other complications; I48.20 Chronic atrial fibrillation, unspecified; I10 Essential (primary) hypertension; I27.20 Pulmonary hypertension, unspecified; Z95.0 Presence of cardiac pacemaker; F17.210 Nicotine dependence, cigarettes, uncomplicated; Z79.01 Long term (current) use of anticoagulants | CPT/HCPCS: 99214 ==

== ENCOUNTER → 2024-12-16 15:32 | Outpatient (BNVA) | payer MEDICARE, SELFPAY | PROVIDERS: PCP Electrodiagnostic Medicine; Visit Provider Internal Medicine Cardiovascular Disease | DX: I25.118 Atherosclerotic heart disease of native coronary artery with other forms of angina pectoris (principal); I48.20 Chronic atrial fibrillation, unspecified; Z79.01 Long term (current) use of anticoagulants; Z79.82 Long term (current) use of aspirin; I10 Essential (primary) hypertension; I27.20 Pulmonary hypertension, unspecified; I83.892 Varicose veins of left lower extremity with other complications; Z95.1 Presence of aortocoronary bypass graft; Z98.61 Coronary angioplasty status; Z95.0 Presence of cardiac pacemaker; F17.210 Nicotine dependence, cigarettes, uncomplicated; R07.9 Chest pain, unspecified; R06.02 Shortness of breath; R06.09 Other forms of dyspnea; I31.9 Disease of pericardium, unspecified | CPT/HCPCS: 36415; 80048; 83880; 84484; 85025; 93005; 99214 ==

== ENCOUNTER 2024-12-17 15:22 | Outpatient (CLI) | payer MEDICARE, SELFPAY ==
--- NOTE | 2024-12-17 15:45 | USCV_ITS ---
Marvin Plasencia Age: 64 Gender: M : 1960 Exam Date: 12/17/2024 15:56 Ordering Phys: Donna Bond MD ([email or web address]) Technologist: HARI Exam Location: [facility] [place] Indication: SoB/CHF BP: 110 / 70 HR: 59 Rhythm: Sinus Technical Quality: Adequate MEASUREMENTS (Male / Female) Normal Values 2D ECHO LV Diastolic Diameter PLAX 6.1 cm 4.2 - 5.9 / 3.9 - 5.3 cm IVS Systolic Thickness 1.3 cm LVPW Diastolic Thickness 2.0 cm 0.6 - 1.0 / 0.6 - 0.9 cm LVPW Systolic Thickness 1.6 cm LVOT Diameter 2.0 cm LV Ejection Fraction 2D Teich 42.6 % LV Ejection Fraction MOD 4C 46.9 % LV Ejection Fraction MOD 2C 49.6 % LV Ejection Fraction 2C AL 51.8 % LA Diameter 4.4 cm RA Systolic Volume 4C AL 72.4 ml RA Systolic Volume 4C MOD 68.9 ml LA Sys Volume AL 53.0 cm cubed LA Sys Volume Index AL 21.3 cm cubed/m squared Aorta at Sinotubular Diameter 3.3 cm IVC Diameter 2.2 cm M-MODE LA Ao Ratio MM 1.6 AV Cusp Separation MM 1.2 cm DOPPLER AV Peak Velocity 92.0 cm/s LVOT Peak Velocity 76.0 cm/s AV Area Cont Eq vti 3.0 cm squared AV Area Cont Eq pk 2.6 cm squared MV Peak Velocity 80.0 cm/s MV Area PHT 3.5 cm squared Mitral E to A Ratio 3.6 TV Peak Velocity 195.0 cm/s TR Peak Velocity 215.0 cm/s TR Peak Gradient 18.5 mmHg TV Peak E Velocity 69.0 cm/s PV Peak Velocity 69.0 cm/s FINDINGS Left Ventricle Mild diffuse hypokinesis of the left ventricle with an ejection fraction of 48%.mild left ventricular hypertrophy. Right Ventricle Pacemaker/defibrillator wire on the right ventricle Right Atrium Pacemaker/defibrillator wire in the right atrium Left Atrium Mildly increased left atrial size. IA Septum Normal appearance of the interatrial septum. Mitral Valve Normal mitral valve structure. No mitral valve stenosis or regurgitation. Aortic Valve No gross abnormalities noted Tricuspid Valve Trace to mild tricuspid valve regurgitation. Estimated pulmonary artery peak systolic pressure 21 mm of Pulmonic Valve Pulmonic valve not well visualized. Pericardium No pericardial effusion. Aorta Normal aortic annulus size. IVC Normal inferior vena cava. CONCLUSIONS Mild diffuse hypokinesis of the left ventricle with an ejection fraction of 48%.mild left ventricular hypertrophy. Normal mitral valve structure. No mitral valve stenosis or regurgitation. Trace to mild tricuspid valve regurgitation. Estimated pulmonary artery peak systolic pressure 21 mm of.Hg There is no pericardial effusion. There are no intracardiac masses. Compared to the previous study from 02/27/2022, there may not be a significant change Dr Donna Bond MD FACC (Electronically Signed) Final Date: 19 December 2024 19:34 S
== END 2024-12-17 15:23 | disposition home or self-care (01) ==
LOC: RAD 15:27
PROVIDERS: PCP Electrodiagnostic Medicine; Visit Provider Internal Medicine Cardiovascular Disease
DX: R06.09 Other forms of dyspnea (principal); R06.02 Shortness of breath; I50.9 Heart failure, unspecified; Z95.0 Presence of cardiac pacemaker; I36.1 Nonrheumatic tricuspid (valve) insufficiency; I51.89 Other ill-defined heart diseases; I51.7 Cardiomegaly
CPT/HCPCS: 93306

== ENCOUNTER → 2025-01-19 12:11 | Outpatient (BNVA) | payer MEDICARE, SELFPAY | PROVIDERS: PCP Electrodiagnostic Medicine; Visit Provider Internal Medicine Cardiovascular Disease | DX: R06.09 Other forms of dyspnea (principal); R05.9 Cough, unspecified; R06.02 Shortness of breath; Z79.01 Long term (current) use of anticoagulants; Z95.5 Presence of coronary angioplasty implant and graft; Z95.0 Presence of cardiac pacemaker; Z98.890 Other specified postprocedural states; R55 Syncope and collapse; I25.118 Atherosclerotic heart disease of native coronary artery with other forms of angina pectoris; I48.20 Chronic atrial fibrillation, unspecified; I83.892 Varicose veins of left lower extremity with other complications; I10 Essential (primary) hypertension; I27.20 Pulmonary hypertension, unspecified; F17.210 Nicotine dependence, cigarettes, uncomplicated; Z79.82 Long term (current) use of aspirin | CPT/HCPCS: 36415; 71046; 80048; 83880; 85025; 99214 ==

== ENCOUNTER → 2025-02-09 09:14 | Outpatient (BNVA) | payer MEDICARE, SELFPAY | PROVIDERS: PCP Electrodiagnostic Medicine; Visit Provider Internal Medicine Cardiovascular Disease | DX: Z45.018 Encounter for adjustment and management of other part of cardiac pacemaker (principal) | CPT/HCPCS: 93296 ==